=== PATIENT | male | born 1960 | race Caucasian/White ===

== ENCOUNTER 2021-09-09 16:08 | Outpatient (REF) | payer MEDICAID, SELFPAY ==
[2021-09-09 17:25] LABS: Anion Gap 10.2 mmol/L (3-11); BUN 12 mg/dL (7-18); CO2 24.8 mmol/L (21.0-32.0); CREATININE 0.8 mg/dL (0.70-1.30); Chloride 103 mmol/L (98-107); Glucose 114 mg/dL (74-106); Potassium 3.9 mmol/L (3.5-5.1); Sodium 138 mmol/L (136-145)
== END 2021-09-09 16:09 | disposition home or self-care (01) ==
LOC: LBN 16:08
PROVIDERS: PCP Legal Medicine; Visit Provider Legal Medicine
DX: I10 Essential (primary) hypertension (principal); C18.4 Malignant neoplasm of transverse colon; I25.10 Atherosclerotic heart disease of native coronary artery without angina pectoris; Z43.2 Encounter for attention to ileostomy; Z93.2 Ileostomy status
CPT/HCPCS: 80048

== ENCOUNTER 2021-09-19 11:42 | Outpatient (REF) | payer MEDICAID, SELFPAY ==
[2021-09-19 13:52] LABS: Anion Gap 7.4 mmol/L (3-11); BUN 14 mg/dL (7-18); CO2 28.6 mmol/L (21.0-32.0); CREATININE 0.7 mg/dL (0.70-1.30); Calcium 9.6 mg/dL (8.5-10.1); Chloride 104 mmol/L (98-107); Glucose 91 mg/dL (74-106); Potassium 4.7 mmol/L (3.5-5.1); Sodium 140 mmol/L (136-145)
== END 2021-09-19 11:43 ==
LOC: LBN 11:42
PROVIDERS: PCP Legal Medicine; Visit Provider Colon & Rectal Surgery
DX: C18.4 Malignant neoplasm of transverse colon (principal); I25.10 Atherosclerotic heart disease of native coronary artery without angina pectoris
CPT/HCPCS: 80048

== ENCOUNTER 2021-09-23 15:43 | Outpatient (REF) | payer MEDICAID, SELFPAY ==
[2021-09-23 21:05] LABS: Anion Gap 8.5 mmol/L (3-11); BUN 19 mg/dL (7-18); CO2 24.5 mmol/L (21.0-32.0); CREATININE 0.9 mg/dL (0.70-1.30); Calcium 8.5 mg/dL (8.5-10.1); Chloride 107 mmol/L (98-107); Glucose 127 mg/dL (74-106); Potassium 4.2 mmol/L (3.5-5.1); Sodium 140 mmol/L (136-145)
== END 2021-09-23 15:44 | disposition home or self-care (01) ==
LOC: LBN 15:43
PROVIDERS: PCP Legal Medicine; Visit Provider Colon & Rectal Surgery
DX: C18.4 Malignant neoplasm of transverse colon (principal); Z48.3 Aftercare following surgery for neoplasm; Z43.2 Encounter for attention to ileostomy
CPT/HCPCS: 80048

== ENCOUNTER 2021-09-30 15:36 | Outpatient (REF) | payer MEDICAID, SELFPAY ==
[2021-09-30 17:11] LABS: Anion Gap 10.7 mmol/L (3-11); BUN 20 mg/dL (7-18); CO2 24.3 mmol/L (21.0-32.0); CREATININE 1.1 mg/dL (0.70-1.30); Chloride 103 mmol/L (98-107); Glucose 107 mg/dL (74-106); Sodium 138 mmol/L (136-145)
== END 2021-09-30 15:37 | disposition home or self-care (01) ==
LOC: LBN 15:36
PROVIDERS: PCP Legal Medicine; Visit Provider Colon & Rectal Surgery
DX: C18.4 Malignant neoplasm of transverse colon (principal); I25.10 Atherosclerotic heart disease of native coronary artery without angina pectoris; Z48.3 Aftercare following surgery for neoplasm; Z43.2 Encounter for attention to ileostomy
CPT/HCPCS: 80048

== ENCOUNTER 2021-10-08 19:03 | Outpatient (REF) | payer MEDICAID, SELFPAY ==
[2021-10-08 16:53] LABS: Anion Gap 9.4 mmol/L (3-11); BUN 17 mg/dL (7-18); CO2 25.6 mmol/L (21.0-32.0); CREATININE 0.9 mg/dL (0.70-1.30); Calcium 8.5 mg/dL (8.5-10.1); Chloride 103 mmol/L (98-107); Glucose 133 mg/dL (74-106); Potassium 4.5 mmol/L (3.5-5.1); Sodium 138 mmol/L (136-145)
== END 2021-10-08 19:04 | disposition home or self-care (01) ==
LOC: LBN 19:03
PROVIDERS: PCP Legal Medicine; Visit Provider Colon & Rectal Surgery
DX: Z43.2 Encounter for attention to ileostomy (principal); Z93.2 Ileostomy status
CPT/HCPCS: 80048

== ENCOUNTER 2021-10-13 12:46 | Outpatient (REF) | payer MEDICAID, SELFPAY ==
[2021-10-13 13:13] LABS: Anion Gap 11.3 mmol/L (3-11); BUN 20 mg/dL (7-18); CO2 23.7 mmol/L (21.0-32.0); Calcium 8.9 mg/dL (8.5-10.1); Chloride 104 mmol/L (98-107); Glucose 105 mg/dL (74-106); Potassium 4.6 mmol/L (3.5-5.1); Sodium 139 mmol/L (136-145)
== END 2021-10-13 12:47 | disposition home or self-care (01) ==
LOC: LBN 12:46
PROVIDERS: PCP Legal Medicine; Visit Provider Colon & Rectal Surgery
DX: C18.4 Malignant neoplasm of transverse colon (principal); I11.9 Hypertensive heart disease without heart failure; I26.99 Other pulmonary embolism without acute cor pulmonale
CPT/HCPCS: 80048

== ENCOUNTER 2021-10-20 11:38 | Outpatient (REF) | payer MEDICAID, SELFPAY ==
[2021-10-20 12:22] LABS: Abs Immature Grans 0.03 10^3/uL (0.0-0.06); Absolute Basophil Count 0.04 10^3/uL (0.0-0.2); Absolute Eosinophil Count 0.19 10^3/uL (0.0-0.7); Absolute Lymphocyte Count 1.42 10^3/uL (1.2-3.4); Absolute Monocyte Count 0.54 10^3/uL (0.1-0.8); Absolute Neutrophil Count 5.57 10^3/uL (1.2-6.7); Basophils % 0.5; Eosinophils % 2.4; HCT 38.6 % (40.0-50.0); HGB 12.7 g/dL (13.5-17.5); Immature Grans % 0.4; Lymphocytes % 18.2; MCH 28.5 pg (27.0-33.0); MCHC 32.9 % (32.0-36.0); MCV 86.7 fL (80-95); Monocytes % 6.9; Neutrophils % 71.6; Nucleated RBC 0 %; Platelet Count 193 10^3/uL (130-400); RBC 4.45 10^6/uL (4.36-5.78); RDW 14.3 % (11.8-14.1); RDW-SD 45.8 fL; WBC 7.79 10^3/uL (4.4-10.8)
[2021-10-20 12:45] LABS: ALT 119 U/L (16-63); AST 74 U/L (15-37); Albumin 3.8 g/dL (3.4-5.0); Alkaline Phosphatase 122 U/L (46-116); Anion Gap 12.5 mmol/L (3-11); BUN 28 mg/dL (7-18); Bilirubin, Total 0.6 mg/dL (0.2-1.0); CO2 20.5 mmol/L (21.0-32.0); CREATININE 1.1 mg/dL (0.70-1.30); Chloride 102 mmol/L (98-107); Glucose 112 mg/dL (74-106); Potassium 4.1 mmol/L (3.5-5.1); Sodium 135 mmol/L (136-145); Total Protein 7.2 g/dL (6.4-8.2)
[2021-10-21 09:52] LABS: CEA 7.2 ng/mL (See Note)
== END 2021-10-20 11:39 | disposition home or self-care (01) ==
LOC: LBN 11:38
PROVIDERS: PCP Legal Medicine; Visit Provider Colon & Rectal Surgery
DX: E11.9 Type 2 diabetes mellitus without complications (principal); C18.4 Malignant neoplasm of transverse colon; Z93.2 Ileostomy status
CPT/HCPCS: 80053; 82378; 85025

== ENCOUNTER 2021-10-25 01:19 | Outpatient (RCR) | payer MEDICAID, SELFPAY ==
[2021-10-11] MEDS: Normal Saline Flush 10 ML SYR IVP (08:12)
[2021-10-11 08:24] LABS: Abs Immature Grans 0.06 10^3/uL (0.0-0.06); Absolute Basophil Count 0.06 10^3/uL (0.0-0.2); Absolute Eosinophil Count 0.18 10^3/uL (0.0-0.7); Absolute Lymphocyte Count 0.98 10^3/uL (1.2-3.4); Absolute Monocyte Count 0.84 10^3/uL (0.1-0.8); Absolute Neutrophil Count 7.24 10^3/uL (1.2-6.7); Basophils % 0.6; Eosinophils % 1.9; HCT 38.5 % (40.0-50.0); HGB 12.6 g/dL (13.5-17.5); Immature Grans % 0.6; Lymphocytes % 10.5; MCH 28.5 pg (27.0-33.0); MCHC 32.7 % (32.0-36.0); MCV 87.1 fL (80-95); MPV 8.9 fL (8.0-11.0); Neutrophils % 77.4; Nucleated RBC 0 %; Platelet Count 276 10^3/uL (130-400); RBC 4.42 10^6/uL (4.36-5.78); RDW 15.7 % (11.8-14.1); RDW-SD 50.1 fL; WBC 9.36 10^3/uL (4.4-10.8)
[2021-10-11 08:37] LABS: ALT 47 U/L (16-63); AST 31 U/L (15-37); Albumin 3.6 g/dL (3.4-5.0); Alkaline Phosphatase 131 U/L (46-116); Anion Gap 10.6 mmol/L (3-11); BUN 13 mg/dL (7-18); Bilirubin, Total 0.5 mg/dL (0.2-1.0); CO2 23.4 mmol/L (21.0-32.0); CREATININE 1.1 mg/dL (0.70-1.30); Chloride 103 mmol/L (98-107); Glucose 135 mg/dL (74-106); Potassium 4.2 mmol/L (3.5-5.1); Sodium 137 mmol/L (136-145); Total Protein 7.6 g/dL (6.4-8.2)
[2021-10-11 17:25] LABS: CEA 5.6 ng/mL (See Note)
[2021-10-25] MEDS: Normal Saline Flush 10 ML SYR IVP (08:18)
[2021-10-25 08:25] LABS: HCT 38.1 % (40.0-50.0); HGB 12.5 g/dL (13.5-17.5); MCH 28.6 pg (27.0-33.0); MCHC 32.8 % (32.0-36.0); MCV 87.2 fL (80-95); MPV 8.5 fL (8.0-11.0); Nucleated RBC 0 %; Platelet Count 190 10^3/uL (130-400); RBC 4.37 10^6/uL (4.36-5.78); RDW 15.5 % (11.8-14.1); RDW-SD 46.2 fL; WBC 3.32 10^3/uL (4.4-10.8)
[2021-10-25 08:39] LABS: ALT 69 U/L (16-63); AST 28 U/L (15-37); Albumin 3.8 g/dL (3.4-5.0); Alkaline Phosphatase 122 U/L (46-116); Anion Gap 12.6 mmol/L (3-11); BUN 18 mg/dL (7-18); Bilirubin, Total 0.5 mg/dL (0.2-1.0); CO2 21.4 mmol/L (21.0-32.0); CREATININE 1.1 mg/dL (0.70-1.30); Calcium 9.4 mg/dL (8.5-10.1); Chloride 101 mmol/L (98-107); Glucose 125 mg/dL (74-106); Potassium 4.4 mmol/L (3.5-5.1); Sodium 135 mmol/L (136-145); Total Protein 7.8 g/dL (6.4-8.2)
[2021-10-25 08:51] LABS: Absolute Eosinophil Count 0.03 10^3/uL (0.0-0.7); Absolute Lymphocyte Count 1.39 10^3/uL (1.2-3.4); Absolute Monocyte Count 0.43 10^3/uL (0.1-0.8); Absolute Neutrophil Count 1.46 10^3/uL (1.2-6.7); Atypical Lymphocytes % 17; Bands % 1; Diff Comment Manual Differential; RBC Morphology Normal
== END 2021-11-04 23:59 | disposition home or self-care (01) ==
LOC: INF 01:19
PROVIDERS: PCP Legal Medicine; Visit Provider Internal Medicine Hematology & Oncology
DX: C18.4 Malignant neoplasm of transverse colon (principal); Z45.2 Encounter for adjustment and management of vascular access device
CPT/HCPCS: 36591; 80053; 82378; 85025

== ENCOUNTER 2021-11-03 12:37 | Outpatient (REF) | payer MEDICAID, SELFPAY ==
[2021-11-03 12:57] LABS: Anion Gap 9.5 mmol/L (3-11); BUN 29 mg/dL (7-18); CO2 23.5 mmol/L (21.0-32.0); Calcium 8.3 mg/dL (8.5-10.1); Chloride 103 mmol/L (98-107); Glucose 118 mg/dL (74-106); Potassium 3.9 mmol/L (3.5-5.1); Sodium 136 mmol/L (136-145)
== END 2021-11-03 12:38 | disposition home or self-care (01) ==
LOC: NCHCN 12:37
PROVIDERS: PCP Legal Medicine; Visit Provider Colon & Rectal Surgery
DX: C18.4 Malignant neoplasm of transverse colon (principal); I11.9 Hypertensive heart disease without heart failure; Z93.2 Ileostomy status
CPT/HCPCS: 80048

== ENCOUNTER 2021-11-10 11:25 | Outpatient (REF) | payer MEDICAID, SELFPAY ==
[2021-11-10 12:41] LABS: Anion Gap 12.6 mmol/L (3-11); BUN 21 mg/dL (7-18); CO2 22.4 mmol/L (21.0-32.0); CREATININE 1.1 mg/dL (0.70-1.30); Calcium 8.7 mg/dL (8.5-10.1); Chloride 103 mmol/L (98-107); Glucose 109 mg/dL (74-106); Potassium 3.7 mmol/L (3.5-5.1); Sodium 138 mmol/L (136-145)
== END 2021-11-10 11:26 | disposition home or self-care (01) ==
LOC: LBN 11:25
PROVIDERS: PCP Legal Medicine; Visit Provider Colon & Rectal Surgery
DX: C18.4 Malignant neoplasm of transverse colon (principal)
CPT/HCPCS: 80048

== ENCOUNTER 2021-11-29 03:20 | Outpatient (RCR) | payer MEDICAID, SELFPAY ==
[2021-11-08] MEDS: Normal Saline Flush 10 ML SYR IVP (08:24)
[2021-11-08 08:28] LABS: Abs Immature Grans 0.01 10^3/uL (0.0-0.06); Absolute Basophil Count 0.01 10^3/uL (0.0-0.2); Absolute Eosinophil Count 0.04 10^3/uL (0.0-0.7); Absolute Lymphocyte Count 1.36 10^3/uL (1.2-3.4); Absolute Monocyte Count 0.76 10^3/uL (0.1-0.8); Basophils % 0.3; Eosinophils % 1.3; HCT 38.8 % (40.0-50.0); Immature Grans % 0.3; Lymphocytes % 42.8; MCH 29.7 pg (27.0-33.0); MCHC 33.5 % (32.0-36.0); MCV 88.6 fL (80-95); Monocytes % 23.9; Neutrophils % 31.4; Nucleated RBC 0 %; Platelet Count 112 10^3/uL (130-400); RBC 4.38 10^6/uL (4.36-5.78); RDW 16.3 % (11.8-14.1); RDW-SD 51.3 fL; WBC 3.18 10^3/uL (4.4-10.8)
[2021-11-08 08:41] LABS: ALT 58 U/L (16-63); AST 31 U/L (15-37); Albumin 3.4 g/dL (3.4-5.0); Alkaline Phosphatase 100 U/L (46-116); Anion Gap 11.9 mmol/L (3-11); BUN 18 mg/dL (7-18); Bilirubin, Total 0.7 mg/dL (0.2-1.0); CO2 22.1 mmol/L (21.0-32.0); CREATININE 1.4 mg/dL (0.70-1.30); Chloride 101 mmol/L (98-107); Estimated GFR 51.18 (mL/min/1.73m2); Glucose 103 mg/dL (74-106); Potassium 4.3 mmol/L (3.5-5.1); Sodium 135 mmol/L (136-145); Total Protein 6.9 g/dL (6.4-8.2)
[2021-11-11 10:46] LABS: CEA 9.2 ng/mL (See Note)
[2021-11-15] MEDS: Normal Saline Flush 10 ML SYR IVP (08:30)
[2021-11-15 08:40] LABS: HCT 40.6 % (40.0-50.0); HGB 13.5 g/dL (13.5-17.5); MCH 29.7 pg (27.0-33.0); MCHC 33.3 % (32.0-36.0); MCV 89.4 fL (80-95); MPV 8.5 fL (8.0-11.0); Nucleated RBC 0 %; RBC 4.54 10^6/uL (4.36-5.78); RDW 17.1 % (11.8-14.1)
[2021-11-15 09:03] LABS: ALT 45 U/L (16-63); AST 36 U/L (15-37); Albumin 3.8 g/dL (3.4-5.0); Alkaline Phosphatase 113 U/L (46-116); Anion Gap 11.3 mmol/L (3-11); BUN 19 mg/dL (7-18); Bilirubin, Total 0.3 mg/dL (0.2-1.0); CO2 20.7 mmol/L (21.0-32.0); CREATININE 1.5 mg/dL (0.70-1.30); Calcium 9.3 mg/dL (8.5-10.1); Chloride 106 mmol/L (98-107); Estimated GFR 47.27 (mL/min/1.73m2); Glucose 97 mg/dL (74-106); Potassium 4.4 mmol/L (3.5-5.1); Sodium 138 mmol/L (136-145); Total Protein 7.5 g/dL (6.4-8.2)
[2021-11-15 09:06] LABS: Absolute Eosinophil Count 0.13 10^3/uL (0.0-0.7); Absolute Lymphocyte Count 2.01 10^3/uL (1.2-3.4); Absolute Monocyte Count 1.07 10^3/uL (0.1-0.8); Absolute Neutrophil Count 3.35 10^3/uL (1.2-6.7); Bands % 2
[2021-11-15 09:07] LABS: Absolute Basophil Count 0.07 10^3/uL (0.0-0.2); Diff Comment Manual Differential; Metamyelocytes % 1
[2021-11-15 09:10] LABS: Polychromasia Present
[2021-11-15 09:11] LABS: Platelet Count 237 10^3/uL (130-400)
[2021-11-15 17:25] LABS: CEA 6.3 ng/mL (See Note)
[2021-11-29] MEDS: Normal Saline Flush 10 ML SYR IVP (07:54)
[2021-11-29 08:03] LABS: Abs Immature Grans 0.01 10^3/uL (0.0-0.06); Absolute Basophil Count 0.03 10^3/uL (0.0-0.2); Absolute Lymphocyte Count 1.54 10^3/uL (1.2-3.4); Absolute Monocyte Count 0.68 10^3/uL (0.1-0.8); Absolute Neutrophil Count 3.71 10^3/uL (1.2-6.7); Basophils % 0.5; Eosinophils % 1.6; HCT 39.2 % (40.0-50.0); HGB 13.2 g/dL (13.5-17.5); Immature Grans % 0.2; Lymphocytes % 25.4; MCH 30.3 pg (27.0-33.0); MCHC 33.7 % (32.0-36.0); MCV 89.9 fL (80-95); MPV 9.3 fL (8.0-11.0); Monocytes % 11.2; Neutrophils % 61.1; Nucleated RBC 0 %; Platelet Count 149 10^3/uL (130-400); RBC 4.36 10^6/uL (4.36-5.78); RDW 17.4 % (11.8-14.1); RDW-SD 52.8 fL; WBC 6.07 10^3/uL (4.4-10.8)
[2021-11-29 08:14] LABS: ALT 61 U/L (16-63); AST 51 U/L (15-37); Alkaline Phosphatase 120 U/L (46-116); Anion Gap 10.8 mmol/L (3-11); BUN 20 mg/dL (7-18); Bilirubin, Total 0.8 mg/dL (0.2-1.0); CO2 21.2 mmol/L (21.0-32.0); CREATININE 1.5 mg/dL (0.70-1.30); Calcium 9.7 mg/dL (8.5-10.1); Chloride 104 mmol/L (98-107); Estimated GFR 47.27 (mL/min/1.73m2); Glucose 106 mg/dL (74-106); Potassium 4.5 mmol/L (3.5-5.1); Sodium 136 mmol/L (136-145); Total Protein 7.4 g/dL (6.4-8.2)
[2021-11-29 21:11] LABS: CEA 3.7 ng/mL (See Note)
== END 2021-12-02 23:59 | disposition home or self-care (01) ==
LOC: INF 03:20
PROVIDERS: PCP Legal Medicine; Visit Provider Internal Medicine Hematology & Oncology
DX: C18.4 Malignant neoplasm of transverse colon (principal); Z45.2 Encounter for adjustment and management of vascular access device
CPT/HCPCS: 36591; 80053; 82378; 85025

== ENCOUNTER 2021-12-20 00:58 | Outpatient (RCR) | payer MEDICAID, SELFPAY ==
[2021-12-20 08:26] LABS: Abs Immature Grans 0.05 10^3/uL (0.0-0.06); Absolute Basophil Count 0.06 10^3/uL (0.0-0.2); Absolute Eosinophil Count 0.16 10^3/uL (0.0-0.7); Absolute Lymphocyte Count 1.38 10^3/uL (1.2-3.4); Basophils % 1.4; Eosinophils % 3.8; HCT 35.2 % (40.0-50.0); HGB 11.5 g/dL (13.5-17.5); Immature Grans % 1.2; Lymphocytes % 32.5; MCH 31.3 pg (27.0-33.0); MCHC 32.7 % (32.0-36.0); MCV 95.7 fL (80-95); MPV 8.9 fL (8.0-11.0); Monocytes % 16.5; Neutrophils % 44.6; Nucleated RBC 0 %; Platelet Count 169 10^3/uL (130-400); RBC 3.68 10^6/uL (4.36-5.78); RDW 17.9 % (11.8-14.1); RDW-SD 63.1 fL; WBC 4.25 10^3/uL (4.4-10.8)
[2021-12-20 08:40] LABS: ALT 24 U/L (16-63); AST 21 U/L (15-37); Albumin 3.6 g/dL (3.4-5.0); Alkaline Phosphatase 82 U/L (46-116); Anion Gap 11.6 mmol/L (3-11); BUN 11 mg/dL (7-18); Bilirubin, Total 0.4 mg/dL (0.2-1.0); CO2 22.4 mmol/L (21.0-32.0); CREATININE 1.2 mg/dL (0.70-1.30); Calcium 9.1 mg/dL (8.5-10.1); Chloride 106 mmol/L (98-107); Glucose 94 mg/dL (74-106); Potassium 4.3 mmol/L (3.5-5.1); Sodium 140 mmol/L (136-145); Total Protein 6.9 g/dL (6.4-8.2)
[2021-12-20] MEDS: Normal Saline Flush 10 ML SYR IVP (08:45)
[2021-12-20 18:58] LABS: CEA 2.7 ng/mL (See Note)
== END 2022-01-02 23:59 | disposition home or self-care (01) ==
LOC: INF 00:58
PROVIDERS: PCP Legal Medicine; Visit Provider Internal Medicine Hematology & Oncology
DX: C18.4 Malignant neoplasm of transverse colon (principal); Z45.2 Encounter for adjustment and management of vascular access device
CPT/HCPCS: 36591; 80053; 82378; 85025

== ENCOUNTER 2022-01-24 00:50 | Outpatient (RCR) | payer MEDICAID, SELFPAY ==
[2022-01-03] MEDS: Normal Saline Flush 10 ML SYR IVP (08:22)
[2022-01-03 08:38] LABS: Abs Immature Grans 0.01 10^3/uL (0.0-0.06); Absolute Basophil Count 0.02 10^3/uL (0.0-0.2); Absolute Eosinophil Count 0.11 10^3/uL (0.0-0.7); Absolute Lymphocyte Count 1.06 10^3/uL (1.2-3.4); Absolute Monocyte Count 0.43 10^3/uL (0.1-0.8); Absolute Neutrophil Count 2.62 10^3/uL (1.2-6.7); Basophils % 0.5; Eosinophils % 2.6; HCT 32.7 % (40.0-50.0); HGB 10.5 g/dL (13.5-17.5); Immature Grans % 0.2; Lymphocytes % 24.9; MCH 31.2 pg (27.0-33.0); MCHC 32.1 % (32.0-36.0); MPV 9.7 fL (8.0-11.0); Monocytes % 10.1; Neutrophils % 61.7; Nucleated RBC 0 %; Platelet Count 109 10^3/uL (130-400); RBC 3.37 10^6/uL (4.36-5.78); RDW 17.2 % (11.8-14.1); RDW-SD 60.1 fL; WBC 4.25 10^3/uL (4.4-10.8)
[2022-01-03 08:57] LABS: ALT 26 U/L (16-63); AST 24 U/L (15-37); Albumin 3.5 g/dL (3.4-5.0); Alkaline Phosphatase 88 U/L (46-116); Anion Gap 5.5 mmol/L (3-11); BUN 12 mg/dL (7-18); Bilirubin, Total 0.5 mg/dL (0.2-1.0); CO2 24.5 mmol/L (21.0-32.0); Calcium 8.6 mg/dL (8.5-10.1); Chloride 109 mmol/L (98-107); Glucose 105 mg/dL (74-106); Potassium 4.1 mmol/L (3.5-5.1); Sodium 139 mmol/L (136-145); Total Protein 6.5 g/dL (6.4-8.2)
[2022-01-10 09:33] LABS: Abs Immature Grans 0.04 10^3/uL (0.0-0.06); Absolute Basophil Count 0.02 10^3/uL (0.0-0.2); Absolute Eosinophil Count 0.13 10^3/uL (0.0-0.7); Absolute Lymphocyte Count 1.25 10^3/uL (1.2-3.4); Absolute Monocyte Count 0.91 10^3/uL (0.1-0.8); Absolute Neutrophil Count 1.36 10^3/uL (1.2-6.7); Basophils % 0.5; Eosinophils % 3.5; HCT 34.9 % (40.0-50.0); HGB 11.2 g/dL (13.5-17.5); Immature Grans % 1.1; Lymphocytes % 33.7; MCH 31.4 pg (27.0-33.0); MCHC 32.1 % (32.0-36.0); MCV 97.8 fL (80-95); MPV 9.5 fL (8.0-11.0); Monocytes % 24.5; Neutrophils % 36.7; Nucleated RBC 0 %; Platelet Count 209 10^3/uL (130-400); RBC 3.57 10^6/uL (4.36-5.78); RDW 16.1 % (11.8-14.1); RDW-SD 58.4 fL; WBC 3.71 10^3/uL (4.4-10.8)
[2022-01-10] MEDS: Normal Saline Flush 10 ML SYR IVP (09:36)
[2022-01-10 09:54] LABS: ALT 26 U/L (16-63); AST 32 U/L (15-37); Albumin 3.7 g/dL (3.4-5.0); Alkaline Phosphatase 85 U/L (46-116); Anion Gap 9.2 mmol/L (3-11); BUN 11 mg/dL (7-18); Bilirubin, Total 0.6 mg/dL (0.2-1.0); CO2 23.8 mmol/L (21.0-32.0); CREATININE 1.1 mg/dL (0.70-1.30); Calcium 8.9 mg/dL (8.5-10.1); Chloride 106 mmol/L (98-107); Glucose 101 mg/dL (74-106); Sodium 139 mmol/L (136-145); Total Protein 6.9 g/dL (6.4-8.2)
[2022-01-24] MEDS: Normal Saline Flush 10 ML SYR IVP (08:00)
[2022-01-24 08:10] LABS: Abs Immature Grans 0.01 10^3/uL (0.0-0.06); Absolute Basophil Count 0.02 10^3/uL (0.0-0.2); Absolute Lymphocyte Count 1.12 10^3/uL (1.2-3.4); Absolute Monocyte Count 0.57 10^3/uL (0.1-0.8); Absolute Neutrophil Count 3.14 10^3/uL (1.2-6.7); Basophils % 0.4; HCT 32.7 % (40.0-50.0); HGB 10.6 g/dL (13.5-17.5); Immature Grans % 0.2; Lymphocytes % 22.6; MCH 31.6 pg (27.0-33.0); MCHC 32.4 % (32.0-36.0); MCV 97.6 fL (80-95); MPV 10.2 fL (8.0-11.0); Monocytes % 11.5; Neutrophils % 63.3; Platelet Count 102 10^3/uL (130-400); RBC 3.35 10^6/uL (4.36-5.78); RDW-SD 53.9 fL; WBC 4.96 10^3/uL (4.4-10.8)
[2022-01-24 08:22] LABS: ALT 26 U/L (16-63); AST 26 U/L (15-37); Albumin 3.7 g/dL (3.4-5.0); Alkaline Phosphatase 85 U/L (46-116); Anion Gap 6.9 mmol/L (3-11); BUN 12 mg/dL (7-18); Bilirubin, Total 0.6 mg/dL (0.2-1.0); CO2 25.1 mmol/L (21.0-32.0); Chloride 107 mmol/L (98-107); Glucose 98 mg/dL (74-106); Sodium 139 mmol/L (136-145); Total Protein 6.7 g/dL (6.4-8.2)
== END 2022-02-01 23:59 | disposition home or self-care (01) ==
LOC: INF 00:50
PROVIDERS: PCP Legal Medicine; Visit Provider Internal Medicine Hematology & Oncology
DX: Z45.2 Encounter for adjustment and management of vascular access device (principal); C18.4 Malignant neoplasm of transverse colon
CPT/HCPCS: 36591; 80053; 82378; 85025

== ENCOUNTER 2022-02-07 01:54 | Outpatient (RCR) | payer MEDICAID, SELFPAY ==
[2022-02-07] MEDS: Normal Saline Flush 10 ML SYR IVP (09:02)
[2022-02-07 09:11] LABS: Abs Immature Grans 0.01 10^3/uL (0.0-0.06); Absolute Basophil Count 0.02 10^3/uL (0.0-0.2); Absolute Eosinophil Count 0.13 10^3/uL (0.0-0.7); Basophils % 0.4; Eosinophils % 2.7; HCT 31.1 % (40.0-50.0); HGB 10.1 g/dL (13.5-17.5); Immature Grans % 0.2; Lymphocytes % 24.7; MCH 31.2 pg (27.0-33.0); MCHC 32.5 % (32.0-36.0); MCV 96 fL (80-95); MPV 10.7 fL (8.0-11.0); Monocytes % 16.5; Neutrophils % 55.5; Platelet Count 103 10^3/uL (130-400); RBC 3.24 10^6/uL (4.36-5.78); RDW 14.5 % (11.8-14.1); RDW-SD 50.1 fL; WBC 4.86 10^3/uL (4.4-10.8)
[2022-02-07 09:29] LABS: ALT 21 U/L (16-63); AST 24 U/L (15-37); Albumin 3.5 g/dL (3.4-5.0); Alkaline Phosphatase 73 U/L (46-116); Anion Gap 8.7 mmol/L (3-11); BUN 10 mg/dL (7-18); Bilirubin, Total 0.6 mg/dL (0.2-1.0); CO2 26.3 mmol/L (21.0-32.0); Calcium 8.6 mg/dL (8.5-10.1); Chloride 108 mmol/L (98-107); Glucose 85 mg/dL (74-106); Sodium 143 mmol/L (136-145); Total Protein 6.4 g/dL (6.4-8.2)
== END 2022-03-04 23:59 | disposition home or self-care (01) ==
LOC: INF 01:54
PROVIDERS: PCP Legal Medicine; Visit Provider Internal Medicine Hematology & Oncology
DX: C18.4 Malignant neoplasm of transverse colon (principal); Z45.2 Encounter for adjustment and management of vascular access device
CPT/HCPCS: 36591; 80053; 82378; 85025

== ENCOUNTER 2022-03-14 01:05 | Outpatient (RCR) | payer MEDICAID, SELFPAY ==
[2022-03-14] MEDS: Normal Saline Flush 10 ML SYR IVP (07:18)
[2022-03-14 07:26] LABS: Abs Immature Grans 0.06 10^3/uL (0.0-0.06); Absolute Basophil Count 0.03 10^3/uL (0.0-0.2); Absolute Eosinophil Count 0.18 10^3/uL (0.0-0.7); Absolute Lymphocyte Count 1.16 10^3/uL (1.2-3.4); Absolute Monocyte Count 0.58 10^3/uL (0.1-0.8); Absolute Neutrophil Count 3.16 10^3/uL (1.2-6.7); Basophils % 0.6; Eosinophils % 3.5; HCT 33.5 % (40.0-50.0); HGB 10.8 g/dL (13.5-17.5); Immature Grans % 1.2; Lymphocytes % 22.4; MCH 29.9 pg (27.0-33.0); MCHC 32.2 % (32.0-36.0); MCV 93 fL (80-95); MPV 10.9 fL (8.0-11.0); Monocytes % 11.2; Neutrophils % 61.1; Platelet Count 118 10^3/uL (130-400); RBC 3.61 10^6/uL (4.36-5.78); RDW 14.1 % (11.8-14.1); WBC 5.17 10^3/uL (4.4-10.8)
[2022-03-14 08:02] LABS: ALT 24 U/L (16-63); AST 28 U/L (15-37); Albumin 3.6 g/dL (3.4-5.0); Alkaline Phosphatase 94 U/L (46-116); Anion Gap 8.7 mmol/L (3-11); BUN 14 mg/dL (7-18); Bilirubin, Total 0.4 mg/dL (0.2-1.0); CO2 25.3 mmol/L (21.0-32.0); Calcium 8.9 mg/dL (8.5-10.1); Chloride 108 mmol/L (98-107); Glucose 95 mg/dL (74-106); Potassium 4.3 mmol/L (3.5-5.1); Sodium 142 mmol/L (136-145); Total Protein 6.8 g/dL (6.4-8.2)
[2022-03-14 18:02] LABS: CEA 1.2 ng/mL (See Note)
== END 2022-04-03 23:59 | disposition home or self-care (01) ==
LOC: INF 01:05
PROVIDERS: PCP Legal Medicine; Visit Provider Internal Medicine Hematology & Oncology
DX: C18.4 Malignant neoplasm of transverse colon (principal); Z45.2 Encounter for adjustment and management of vascular access device
CPT/HCPCS: 36591; 80053; 82378; 85025

== ENCOUNTER → 2022-08-01 00:56 | Outpatient (CLI) | payer MEDICAID, SELFPAY ==
[2022-08-01] MEDS: Omnipaque 350 MG/ML 100 ML BTL IJ (14:31)
[2022-08-01] MEDS: Barium Sulfate 2% W/V-Creamy Vanilla Smoothie 450 ML BTL PO (14:32)
--- NOTE | 2022-08-01 14:45 | DI.CT_ITS ---
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 Pulmonary parenchyma: No consolidation or dominant measurable mass. No architectural distortion. Visualized thyroid gland: There is a stable 2.4 cm nodule in the inferior pole of the left lobe of th e thyroid gland. Mediastinum and Padmini: No dominant adenopathy or fluid collection. The esophagus is unremarkable. Pleura: No effusion or pneumothorax. Heart: The heart is not dilated. Marked coronary artery calcification is present. No pericardial eff usion. Pulmonary arteries: No pulmonary emboli are identified. Aorta: Thoracic aorta non-dilated. Atherosclerosis is present. Lymph nodes: Within normal limits. Tubes, Catheters, and Lines: There is a Port-A-Cath seen. The tip is at the junction of the superior vena cava and right atrium. Soft tissues: Unremarkable. Bones:Within normal limits for the patient's age. No aggressive osseous lesions are present. ABDOMEN: Liver: Normal density. No measurable mass. The liver measures 18 cm long. Portal, Superior Mesenteric, and Splenic Veins: Unremarkable. Gallbladder and Biliary Tract: Cholelithiasis. No biliary ductal dilatation. Pancreas: Normal density, no abnormal calcifications or inflammatory process. Spleen: The spleen is enlarged measuring 16 cm long. Adrenals: No masses seen. Kidneys: Normal size, contour and axis. No radiodense stones or obstructive uropathy. There are bilat eral simple renal cysts. No follow-up is recommended. Abdominal Aorta: Abdominal portion non-dilated. Atherosclerosis is present. Bowel: There has been an interval hemicolectomy with a coloenteric anastomosis. The anastomosis is u nremarkable. There is diverticulosis seen in the colon but no evidence of acute diverticulitis. No evidence of bowel obstruction. Peritoneal Cavity: No ascites, collection or mesenteric inflammatory response. No free air. Lymph Nodes: Within normal limits. Bones: Within normal limits for the patient's age. No aggressive osseous lesions are identified. Soft Tissues: There are small bilateral fat containing inguinal hernias. PELVIS: Bladder: Symmetric distention, no gross wall thickening. Reproductive Organs: The prostate gland is mildly enlarged. Lymph Nodes: Within normal limits. Bones: Within normal limits. IMPRESSION: 1. No evidence of thoracic metastatic disease. 2. Status post right hemicolectomy with coloenteric anastomosis. No evidence of recurrent or residua l mass. 3. No evidence of abdominal or pelvic metastatic disease. 4. Hepatosplenomegaly. RADIATION DOSE DELIVERED: 2,423.69mGy.cm Total DLP DATA REPOSITORY: All CT scans at this facility are submitted to the National Radiology Data Registry (NRDR) Dose Index Registry (DIR) with the [employer] (ACR). RADIATION OPTIMIZATION: All CT scans at this facility use at least one of these dose optimization te chniques: automated exposure control; mA and/or kV adjustment per patient size (includes targeted exa ms where dose is matched to clinical indication); or iterative reconstruction.
== END ==
PROVIDERS: PCP Legal Medicine; Visit Provider Internal Medicine Hematology & Oncology
DX: R16.2 Hepatomegaly with splenomegaly, not elsewhere classified (principal); C18.2 Malignant neoplasm of ascending colon
CPT/HCPCS: 74177; 71260; J3490

== ENCOUNTER 2022-08-01 01:17 | Outpatient (RCR) | payer MEDICAID, SELFPAY ==
[2022-08-01] MEDS: Normal Saline Flush 10 ML SYR IVP (12:20)
[2022-08-01] MEDS: Heparin 500 UNITS/5 ML SYRINGE IV (12:21)
[2022-08-01 12:23] LABS: Abs Immature Grans 0.02 10^3/uL (0.0-0.06); Absolute Basophil Count 0.04 10^3/uL (0.0-0.2); Absolute Lymphocyte Count 1.33 10^3/uL (1.2-3.4); Absolute Monocyte Count 0.64 10^3/uL (0.1-0.8); Absolute Neutrophil Count 3.83 10^3/uL (1.2-6.7); Basophils % 0.7; Eosinophils % 3.3; HCT 34.3 % (40.0-50.0); HGB 10.7 g/dL (13.5-17.5); Immature Grans % 0.3; Lymphocytes % 21.9; MCH 25.1 pg (27.0-33.0); MCHC 31.2 % (32.0-36.0); MCV 81 fL (80-95); MPV 9.6 fL (8.0-11.0); Monocytes % 10.6; Neutrophils % 63.2; Platelet Count 159 10^3/uL (130-400); RBC 4.26 10^6/uL (4.36-5.78); RDW 16.5 % (11.8-14.1); RDW-SD 48.3 fL; WBC 6.06 10^3/uL (4.4-10.8)
[2022-08-01 12:45] LABS: ALT 33 U/L (16-63); AST 31 U/L (15-37); Alkaline Phosphatase 109 U/L (46-116); Anion Gap 7.6 mmol/L (3-11); BUN 28 mg/dL (7-18); Bilirubin, Total 0.5 mg/dL (0.2-1.0); CO2 26.4 mmol/L (21.0-32.0); CREATININE 1.1 mg/dL (0.70-1.30); Calcium 8.9 mg/dL (8.5-10.1); Chloride 107 mmol/L (98-107); Estimated GFR 74.96 (mL/min/1.73m2); Glucose 90 mg/dL (74-106); Potassium 4.1 mmol/L (3.5-5.1); Sodium 141 mmol/L (136-145); Total Protein 7.6 g/dL (6.4-8.2)
[2022-08-01 22:26] LABS: CEA 1.7 ng/mL (See Note)
== END 2022-08-04 23:59 | disposition home or self-care (01) ==
LOC: INF 01:17
PROVIDERS: PCP Legal Medicine; Visit Provider Internal Medicine Hematology & Oncology
DX: C18.2 Malignant neoplasm of ascending colon (principal); Z45.2 Encounter for adjustment and management of vascular access device
CPT/HCPCS: 36591; 80053; 82378; 85025

== ENCOUNTER 2022-08-08 08:37 | Outpatient (RCR) | payer MEDICAID, SELFPAY ==
[2022-08-08] MEDS: Normal Saline Flush 10 ML SYR IVP (09:04)
[2022-08-08] MEDS: Heparin 500 UNITS/5 ML SYRINGE (09:05)
[2022-08-08 09:11] LABS: Reticulocyte 1.5 % (0.5-2.4)
[2022-08-08 09:33] LABS: Iron 38 ug/dL (65-175); Total Iron Binding Capacity 367 ug/dL (250-450); Transferrin Sat 10 % (20-55)
[2022-08-08 09:51] LABS: Ferritin 22 ng/mL (26-388); Folate 13.6 ng/mL (8.6-20.0); Vitamin B12 233 pg/mL (193-986)
== END 2022-09-03 23:59 | disposition home or self-care (01) ==
LOC: INF 08:37
PROVIDERS: PCP Legal Medicine; Visit Provider Internal Medicine Hematology & Oncology
DX: C18.2 Malignant neoplasm of ascending colon (principal); Z45.2 Encounter for adjustment and management of vascular access device
CPT/HCPCS: 36591; 82607; 82728; 82746; 83540; 83550; 85045

== ENCOUNTER 2022-09-04 09:44 | Outpatient (RCR) | payer MEDICAID, SELFPAY ==
[2022-09-04] MEDS: Normal Saline Flush 10 ML SYR IVP (10:03)
[2022-09-04] MEDS: Heparin 500 UNITS/5 ML SYRINGE IVP (10:04)
[2022-09-04 10:09] LABS: Abs Immature Grans 0.02 10^3/uL (0.0-0.06); Absolute Basophil Count 0.04 10^3/uL (0.0-0.2); Absolute Eosinophil Count 0.27 10^3/uL (0.0-0.7); Absolute Lymphocyte Count 1.46 10^3/uL (1.2-3.4); Absolute Monocyte Count 0.79 10^3/uL (0.1-0.8); Absolute Neutrophil Count 3.67 10^3/uL (1.2-6.7); Basophils % 0.6; Eosinophils % 4.3; HGB 11.5 g/dL (13.5-17.5); Immature Grans % 0.3; Lymphocytes % 23.4; MCH 25.6 pg (27.0-33.0); MCHC 31.1 % (32.0-36.0); MCV 82 fL (80-95); MPV 9.5 fL (8.0-11.0); Monocytes % 12.6; Neutrophils % 58.8; Platelet Count 162 10^3/uL (130-400); RBC 4.49 10^6/uL (4.36-5.78); RDW 18.1 % (11.8-14.1); RDW-SD 53.8 fL; WBC 6.25 10^3/uL (4.4-10.8)
[2022-09-04 10:46] LABS: ALT 33 U/L (16-63); AST 26 U/L (15-37); Alkaline Phosphatase 104 U/L (46-116); Anion Gap 6.8 mmol/L (3-11); BUN 27 mg/dL (7-18); Bilirubin, Total 0.4 mg/dL (0.2-1.0); CO2 27.2 mmol/L (21.0-32.0); Calcium 8.7 mg/dL (8.5-10.1); Chloride 104 mmol/L (98-107); Estimated GFR 84.05 (mL/min/1.73m2); Ferritin 24 ng/mL (26-388); Glucose 101 mg/dL (74-106); Potassium 4.2 mmol/L (3.5-5.1); Sodium 138 mmol/L (136-145); Total Protein 7.4 g/dL (6.4-8.2)
[2022-09-04 10:49] LABS: Iron 46 ug/dL (65-175); Total Iron Binding Capacity 358 ug/dL (250-450); Transferrin Sat 13 % (20-55)
[2022-09-04 19:44] LABS: CEA 1.7 ng/mL (See Note)
== END 2022-10-04 23:59 | disposition home or self-care (01) ==
LOC: INF 09:44
PROVIDERS: PCP Legal Medicine; Visit Provider Internal Medicine Hematology & Oncology
DX: C18.2 Malignant neoplasm of ascending colon (principal); Z45.2 Encounter for adjustment and management of vascular access device
CPT/HCPCS: 36591; 80053; 82378; 82728; 83540; 83550; 85025

== ENCOUNTER 2023-02-19 01:58 | Outpatient (CLI) | payer MEDICAID, SELFPAY ==
[2023-02-19 08:05] LABS: Abs Immature Grans 0.06 10^3/uL (0.0-0.06); Absolute Basophil Count 0.06 10^3/uL (0.0-0.2); Absolute Eosinophil Count 0.25 10^3/uL (0.0-0.7); Absolute Lymphocyte Count 1.59 10^3/uL (1.2-3.4); Absolute Neutrophil Count 3.73 10^3/uL (1.2-6.7); HCT 41.7 % (40.0-50.0); HGB 14.9 g/dL (13.5-17.5); Lymphocytes % 25.3; MCH 32.6 pg (27.0-33.0); MCHC 35.7 % (32.0-36.0); MCV 91 fL (80-95); MPV 9.1 fL (8.0-11.0); Monocytes % 9.5; Neutrophils % 59.2; Platelet Count 143 10^3/uL (130-400); RBC 4.57 10^6/uL (4.36-5.78); RDW 13.2 % (11.8-14.1); RDW-SD 43.1 fL; WBC 6.29 10^3/uL (4.4-10.8)
[2023-02-19] MEDS: Barium Sulfate 2% W/V-Berry Smoothie 450 ML BTL 950 ML PO (08:05)
[2023-02-19 08:28] LABS: ALT 40 U/L (16-63); AST 28 U/L (15-37); Albumin 4.2 g/dL (3.4-5.0); Alkaline Phosphatase 83 U/L (46-116); Anion Gap 9.8 mmol/L (3-11); BUN 19 mg/dL (7-18); Bilirubin, Total 0.7 mg/dL (0.2-1.0); CO2 28.2 mmol/L (21.0-32.0); CREATININE 1.1 mg/dL (0.70-1.30); Calcium 8.9 mg/dL (8.5-10.1); Chloride 106 mmol/L (98-107); Estimated GFR 74.96 (mL/min/1.73m2); Glucose 108 mg/dL (74-106); Potassium 3.8 mmol/L (3.5-5.1); Sodium 144 mmol/L (136-145); Total Protein 7.6 g/dL (6.4-8.2)
[2023-02-19] MEDS: Normal Saline - Diluent 50 ML VIAL IJ (09:46)
[2023-02-19] MEDS: Omnipaque 350 MG/ML 500 ML BTL-Imaging package 100 ML IJ (09:48)
--- NOTE | 2023-02-19 10:08 | DI.CT_ITS ---
Exam(s) CT CHEST/ABD/PEL W EXAM: CT CHEST/ABD/PEL W CLINICAL HISTORY: NEOPLASM ASCENDING COLON, C18.2, RESECTED COLON CA, MONITORING TECHNIQUE: Imaging Protocol: Axial computed tomography images with coronal and sagittal reformatted images were created and reviewed CONTRAST MATERIAL: Intravenous: Omnipaque 350 contrast volume:100 mL Oral: Yes COMPARISON: CT CT CHEST/ABD/PEL W from 08/01/2022 FINDINGS: CHEST: Tracheobronchial tree: Patent where visualized. Pulmonary parenchyma: No consolidation or dominant measurable mass. No architectural distortion. Ther e is a stable 3 mm perifissural nodule associated with the right minor fissure. No suspicious nodules are seen in the lungs. Dependent atelectasis is seen in the lung bases. Visualized thyroid gland: There is a stable left thyroid nodule. Mediastinum and Padmini: No dominant adenopathy or fluid collection. The esophagus is unremarkable. Pleura: No effusion or pneumothorax. Heart: The heart is not dilated. Marked coronary artery calcification is present. No pericardial effu emil. Pulmonary arteries: Due to bolus timing, pulmonary artery evaluation is suboptimal. No large central pulmonary embolus is present. Aorta: Thoracic aorta non-dilated. Atherosclerosis is present. No evidence of dissection. Lymph nodes: Within normal limits. Soft tissues: Unremarkable. Bones:Within normal limits for the patient's age. No aggressive osseous lesions. ABDOMEN: Liver: There does appear to be decreased attenuation of the liver suggesting fatty infiltration. The liver is mildly enlarged measuring 19 cm. No measurable mass. Portal, Superior Mesenteric, and Splenic Veins: Unremarkable. Gallbladder and Biliary Tract: There is a gallstone present. No biliary ductal dilatation. Pancreas: Normal density, no abnormal calcifications or inflammatory process. Spleen: Normal. Adrenals: No masses seen. Kidneys: Normal size, contour and axis. There is a 2 mm nonobstructing stone in the midpole of the le ft kidney. There are stable simple bilateral renal cysts. No follow-up is recommended. Abdominal Aorta: Abdominal portion non-dilated. Atherosclerosis is present. Bowel: Status post hemicolectomy. No evidence of bowel obstruction or bowel wall thickening. There ar e diverticula seen in the sigmoid colon, but no evidence of acute diverticulitis. Peritoneal Cavity: No ascites, collection or mesenteric inflammatory response. No free air. Lymph Nodes: Within normal limits. Bones: Within normal limits for the patient's age. No aggressive osseous lesions are present. Soft Tissues: Unremarkable. PELVIS: Bladder: Symmetric distention, no gross wall thickening. Reproductive Organs: Mildly enlarged prostate gland. Lymph Nodes: Within normal limits. Bones: Within normal limits. IMPRESSION: 1. No evidence of thoracic metastatic disease. 2. No evidence of abdominal or pelvic metastatic disease. 3. Status post hemicolectomy. RADIATION DOSE DELIVERED: 2,989.52mGy.cm Total DLP DATA REPOSITORY: All CT scans at this facility are submitted to the National Radiology Data Registry (NRDR) Dose Index Registry (DIR) with the [employer] (ACR). RADIATION OPTIMIZATION: All CT scans at this facility use at least one of these dose optimization te chniques: automated exposure control; mA and/or kV adjustment per patient size (includes targeted exa ms where dose is matched to clinical indication); or iterative reconstruction.
[2023-02-19 19:52] LABS: CEA 2.3 ng/mL (See Note)
== END 2023-02-19 02:18 ==
LOC: DI 01:59
PROVIDERS: PCP Legal Medicine; Visit Provider Nurse Practitioner Family
DX: Z98.890 Other specified postprocedural states (principal); C18.2 Malignant neoplasm of ascending colon
CPT/HCPCS: 74177; 80053; 71260; 82378; 85025

== ENCOUNTER 2023-06-03 19:41 | Outpatient (CLI) | payer MEDICARE, BC, SELFPAY | END 2023-06-03 19:42 | disposition home or self-care (01) | LOC: LBO 19:41 | PROVIDERS: PCP Legal Medicine; Visit Provider Internal Medicine Hematology & Oncology | DX: C18.4 Malignant neoplasm of transverse colon (principal) | CPT/HCPCS: 36415; 82378 ==

== ENCOUNTER → 2023-08-24 03:18 | Outpatient (CLI) | payer MEDICARE, BC, SELFPAY ==
[2023-08-24 07:46] LABS: Abs Immature Grans 0.06 10^3/uL (0.0-0.06); Absolute Basophil Count 0.04 10^3/uL (0.0-0.2); Absolute Lymphocyte Count 1.75 10^3/uL (1.2-3.4); Absolute Monocyte Count 0.52 10^3/uL (0.1-0.8); Absolute Neutrophil Count 4.38 10^3/uL (1.2-6.7); Basophils % 0.6; Eosinophils % 2.9; HCT 40.5 % (40.0-50.0); HGB 14.3 g/dL (13.5-17.5); Immature Grans % 0.9; Lymphocytes % 25.2; MCH 32.6 pg (27.0-33.0); MCHC 35.3 % (32.0-36.0); MCV 92 fL (80-95); MPV 9.1 fL (8.0-11.0); Monocytes % 7.5; Neutrophils % 62.9; Platelet Count 157 10^3/uL (130-400); RBC 4.39 10^6/uL (4.36-5.78); RDW-SD 43.2 fL; WBC 6.95 10^3/uL (4.4-10.8)
[2023-08-24 08:01] LABS: ALT 43 U/L (16-63); AST 36 U/L (15-37); Albumin 4.1 g/dL (3.4-5.0); Alkaline Phosphatase 62 U/L (46-116); Anion Gap 8.4 mmol/L (3-11); BUN 23 mg/dL (7-18); Bilirubin, Total 0.8 mg/dL (0.2-1.0); CO2 25.6 mmol/L (21.0-32.0); CREATININE 1.1 mg/dL (0.70-1.30); Calcium 9.1 mg/dL (8.5-10.1); Chloride 106 mmol/L (98-107); Glucose 108 mg/dL (74-106); Potassium 3.7 mmol/L (3.5-5.1); Sodium 140 mmol/L (136-145); Total Protein 7.4 g/dL (6.4-8.2)
[2023-08-24] MEDS: Normal Saline - Diluent 50 ML VIAL IJ (09:17)
[2023-08-24] MEDS: Omnipaque 350 MG/ML 500 ML BTL-Imaging package 100 ML IJ (09:18)
[2023-08-24] MEDS: Barium Sulfate 2% W/V-Creamy Vanilla Smoothie 450 ML BTL 900 ML PO (09:35)
--- NOTE | 2023-08-24 09:35 | DI.CT_ITS ---
Exam(s) CT CHEST/ABD/PEL W EXAM: CT CHEST/ABD/PEL W CLINICAL HISTORY: LOCALLY ADVANCED COLON CA, C18.4, RESECTED 2021, RT HEMICOLECTOMY. TECHNIQUE: Imaging Protocol: Axial computed tomography images with coronal and sagittal reformatted images were created and reviewed CONTRAST MATERIAL: Intravenous: Omnipaque 350 Contrast volume:100 ml Oral: yes / COMPARISON: CT CT CHEST/ABD/PEL W from 02/19/2023 FINDINGS: CHEST: Tracheobronchial tree: Patent where visualized. Pulmonary parenchyma: No consolidation or dominant measurable mass. Pleura: No effusion or pneumothorax. Lymph nodes: Within normal limits. Aorta: Thoracic portion non-dilated. Heart: Normal size. Coronary artery calcifications. No pericardial effusion. Bones: And degenerative changes in the spine with prominent endplate osteophytes. No lytic or blasti c lesions.No compression fractures. Thyroid: Stable left thyroid nodule. ABDOMEN and PELVIS: Liver: Enlarged. Moderate hepatic steatosis. No measurable mass. Gallbladder and biliary tract: Single large gallstone. No wall thickening. No biliary dilatation. Pancreas: Normal density, no abnormal calcifications or inflammatory process. Spleen: Normal. Kidneys: Normal size, contour and axis. An small nonobstructing stone left kidney. Small bilateral r enal cysts, stable. No follow-up recommended. No suspicious masses seen. Adrenal glands: No masses seen. Aorta: Abdominal portion non-dilated. Mild atherosclerotic changes. Lymph nodes: Within normal limits. Soft tissues: Loop of small bowel now enters umbilical hernia. No evidence of obstruction. Bladder: Unremarkable. Bowel: No obstruction or bowel wall thickening. Mild diverticulosis. No evidence of diverticulitis . Right hemicolectomy colonic anastomosis transverse colon is unremarkable.. Peritoneal cavity: No ascites. No focal collection or mesenteric inflammatory response. Bones: Unremarkable for age. Reproductive organs: Prostate mildly enlarged. IMPRESSION: No metastatic disease in the chest, abdomen or pelvis.. An umbilical hernia is now present containing a loop of nonobstructed small bowel. RADIATION DOSE DELIVERED: Total DLP DATA REPOSITORY: All CT scans at this facility are submitted to the National Radiology Data Registry (NRDR) Dose Index Registry (DIR) with the [employer] (ACR). RADIATION OPTIMIZATION: All CT scans at this facility use at least one of these dose optimization te chniques: automated exposure control; mA and/or kV adjustment per patient size (includes targeted exa ms where dose is matched to clinical indication); or iterative reconstruction.
[2023-08-24 19:33] LABS: CEA 1.9 ng/mL (See Note)
== END ==
PROVIDERS: PCP Legal Medicine; Visit Provider Nurse Practitioner Family
DX: C18.4 Malignant neoplasm of transverse colon (principal)
CPT/HCPCS: 74177; 80053; 71260; 82378; 85025

== ENCOUNTER 2023-09-29 05:39 | Emergency (ER) | payer MEDICARE, BC, SELFPAY ==
--- NOTE | 2023-09-29 05:45 | DI.CT_ITS ---
Exam(s) CT ABDOMEN PELVIS WO EXAM: CT ABDOMEN PELVIS WO CLINICAL HISTORY: left flank and abdominal pain, hx of colectomy. TECHNIQUE: Imaging Protocol: Axial computed tomography images with coronal and sagittal reformatted images were created and reviewed. Oral: / no COMPARISON: CT CT CHEST/ABD/PEL W from 08/24/2023 FINDINGS: ABDOMEN: Lung Bases: No acute findings. Liver: Enlarged. Moderate to severe hepatic steatosis. No measurable mass. Gallbladder and biliary tract: Single gallstone. No wall thickening. No dilation. Pancreas: Normal density, no abnormal calcifications or inflammatory process. Spleen: Normal. Kidneys: Normal size, contour and axis. 3 millimeter stone distal left ureter causing mild left hydro nephrosis. Mild perinephric stranding. No suspicious masses seen. Adrenal glands: No masses seen. Lymph nodes: Within normal limits. Abdominal Aorta: Abdominal portion non-dilated. Soft tissues: Similar appearance of hernia superior to the umbilicus containing nonobstructed loop of small bowel. PELVIS: Bladder: No wall thickening. No mass or calculi. Bowel: Status post right ace colectomy. Anastomosis unremarkable. No obstruction or bowel wall thi ckening. Mild diverticulosis. Peritoneal cavity: No ascites, collection or mesenteric inflammatory response. Reproductive organs: Prostate mildly enlarged Bones: Unremarkable for age.. IMPRESSION: 3 millimeter stone distal left ureter causing mild left hydronephrosis. Stable appearance of midline abdominal wall hernia without evidence of obstruction. RADIATION DOSE DELIVERED: Total DLP DATA REPOSITORY: All CT scans at this facility are submitted to the National Radiology Data Registry (NRDR) Dose Index Registry (DIR) with the [employer] (ACR). RADIATION OPTIMIZATION: All CT scans at this facility use at least one of these dose optimization te chniques: automated exposure control; mA and/or kV adjustment per patient size (includes targeted exa ms where dose is matched to clinical indication); or iterative reconstruction.
[2023-09-29 05:49] VITALS: BP 169/98; PULSE 80; RESP 18; TEMP 36.6; O2SAT 97
[2023-09-29] MEDS: Ketorolac 15 MG/ML VIAL IVP (06:15)
[2023-09-29] MEDS: Normal Saline 1,000 ML 1000 ML IV (06:16)
[2023-09-29 06:28] VITALS: BP 177/88; PULSE 80; RESP 20; TEMP 36.7; O2SAT 98
[2023-09-29 06:35] LABS: Lactate 2.3 mmol/L (0.6-1.4)
[2023-09-29 06:37] LABS: Abs Immature Grans 0.07 10^3/uL (0.0-0.06); Absolute Basophil Count 0.04 10^3/uL (0.0-0.2); Absolute Eosinophil Count 0.13 10^3/uL (0.0-0.7); Absolute Lymphocyte Count 1.29 10^3/uL (1.2-3.4); Absolute Monocyte Count 1.13 10^3/uL (0.1-0.8); Absolute Neutrophil Count 11.48 10^3/uL (1.2-6.7); Basophils % 0.3; Eosinophils % 0.9; HCT 44.4 % (40.0-50.0); HGB 15.8 g/dL (13.5-17.5); Immature Grans % 0.5; Lymphocytes % 9.1; MCH 33.2 pg (27.0-33.0); MCHC 35.6 % (32.0-36.0); MCV 93 fL (80-95); MPV 9.4 fL (8.0-11.0); Neutrophils % 81.2; Platelet Count 164 10^3/uL (130-400); RBC 4.76 10^6/uL (4.36-5.78); RDW 12.3 % (11.8-14.1); RDW-SD 42.5 fL; WBC 14.14 10^3/uL (4.4-10.8)
[2023-09-29 06:38] LABS: Bilirubin Negative (Negative); Blood Small (Negative); Clarity Clear (Clear); Glucose Negative (Negative); Ketones 15 mg/dL (Negative); Leukocyte Esterase Negative (Negative); Nitrite Negative (Negative); Specific Gravity 1.025 (1.005-1.025); Urobilinogen 0.2 mg/dL (Up to 0.2); pH 5.5 (5-8)
[2023-09-29 06:44] LABS: Bacteria Rare HPF (Negative); Crystals Negative HPF (Negative); Epithelial Cells Rare HPF (Negative); Mucus Trace (Negative); WBC 0-2 HPF (0-5)
[2023-09-29 06:45] LABS: C & S Indicated? No; Casts 0-2 Hyaline LPF (Negative)
[2023-09-29 06:51] LABS: ALT 52 U/L (16-63); AST 36 U/L (15-37); Albumin 4.5 g/dL (3.4-5.0); Alkaline Phosphatase 75 U/L (46-116); Anion Gap 11.5 mmol/L (3-11); BUN 28 mg/dL (7-18); Bilirubin, Total 1.2 mg/dL (0.2-1.0); CO2 25.5 mmol/L (21.0-32.0); CREATININE 1.8 mg/dL (0.70-1.30); Calcium 9.7 mg/dL (8.5-10.1); Chloride 103 mmol/L (98-107); Estimated GFR 41.26 (mL/min/1.73m2); Glucose 126 mg/dL (74-106); Potassium 4.3 mmol/L (3.5-5.1); Sodium 140 mmol/L (136-145); Total Protein 8.2 g/dL (6.4-8.2)
--- NOTE | 2023-09-29 07:05 | W.ED.GENAD ---
Discharge Plan Disposition Patient Disposition: Home Condition: Good Discharge Details Clinical Impression: Kidney stone Primary Care Provider: Ashia Amos ED Provider: Mil Jordan Home Meds and New Rx's Prescriptions: New tamsulosin [Flomax] 0.4 mg capsule 0.4 mg PO DAILY Qty: 10 0RF No Action amlodipine 10 mg tablet PO Patient Comments: TAKE ONE TABLET BY MOUTH ONE TIME DAILY. Discharge Instructions Instructions: Kidney Stones (ED) Additional Instructions: At this time you have evidence of a small kidney stone. This is likely the cause of your symptoms. This should pass within the next 12 to 48 hours, if not earlier. Please drink plenty of fluids, 10 to 12 cups/day at least. Please take 1000 mg of Tylenol every 6 hours as needed for pain. These are the maximum doses of these medicines. Please take the Flomax as directed. This will help in expediting the passage of your kidney stone. If your pain stops, you can stop taking the Flomax. Please strain your urine to collect the stone. This can then be analyzed by your family doctor. If you do not have resolution of your symptoms after 48 to 72 hours please follow-up closely with your family doctor or return here for reassessment. If you notice any worsening of your symptoms, or any new symptoms such as inability to urinate, vomiting, diarrhea, fever, chills, shortness of breath, chest pain, numbness, weakness, or fainting , please return immediately to the emergency department for reevaluation. Please follow up with your primary care provider as soon as possible for reassessment and reevaluation. As always, it was a pleasure participating in your medical care today. Referrals: Shai Waller MD [ [facility] STAFF PHYSICIAN] - Ashia Amos [Primary Care Provider] - Discharge Data Discharge Date/Time-TO BE ENTERED AT DEPARTURE: 09/29/23 09:07 Medical Decision Making 63-year-old male with a past medical history of colon cancer in 2020 with treatment and surgery with ostomy and colectomy and reanastomosis, who presents today for evaluation of abdominal pain. Patient states that starting yesterday morning he developed some left sided/left flank abdominal pain. It comes and goes in severity. Radiates from the left side to the left back. He denies any nausea vomiting or diarrhea. He denies any blood in his urine. He denies a history of kidney stones. No dysuria. No other complaints at this time. No other modifying factors. Exam demonstrates tenderness in the left flank and left lower quadrant of his abdomen. No guarding or rebound. Differential includes diverticulitis, urolithiasis, less likely obstruction. Will get a CT scan, monitor closely and reassess. 7 AM Laboratory workup shows mild white count of 14, lactate of 2.3, electrolytes normal, creatinine of 1.8, GFR 41. His creatinine is slightly higher than normal. Urinalysis shows no evidence of infection, there is evidence of RBCs. Negative nitrates. Negative leuk esterase. Personal review of CT scan shows evidence of urolithiasis on the left. Pending formal read. Will give Flomax, Axel Mab, Toradol. 7:[address] shows evidence of a left ureteral calculus, it is 3 mm in the distal ureter. No evidence of infection in the urine. No leukocyte esterase, nitrates, or WBCs. Patient has no fever. Symptoms inconsistent with pyelonephritis. Repeat lactate was drawn and is normal. Patient's pain is completely resolved. Patient stable for discharge. Recommend close follow-up with urology. Discussed red flags which to return. I have extensively reviewed the treatment plan and discharge instructions with the patient. I have addressed all patient concerns at this time. The patient was made aware of what symptoms to monitor for that would warrant a return to the emergency department. Discussed the plan with the patient, they demonstrate verbal understanding and agreement with our assessment and plan at this time. The documentation in this chart was dictated using [employer] dictation software. Please excuse any dictation errors. FINDINGS: Limitations: Mild motion artifact. No contrast was administered, limiting evaluation for some pathologies. Liver: Hepatomegaly. Gallbladder and bile ducts: Large calculus in the gallbladder neck. Pancreas: No CT evidence for acute pancreatitis. Spleen: Splenomegaly. Adrenal glands: No mass. Kidneys and ureters: Left renal cyst. Left hydroureteronephrosis with perinephric and periureteral stranding. 3 mm calculus in the distal left ureter within the pelvis. Stomach and bowel: No intestinal obstruction is evident. Fluid in nondilated small bowel, nonspecific. Colonic diverticula are identified but there is no CT evidence for diverticulitis. Partial colectomy. Appendix: No evidence of appendicitis. Intraperitoneal space: No free air. Vasculature: Arterial calcifications. Lymph nodes: Nonspecific mesenteric lymph nodes. Urinary bladder: No acute findings. Reproductive: Enlarged prostate with calcifications, indenting the posterior bladder. Bones/joints: No pertinent acute abnormality seen. Soft tissues: Anterior abdominal wall laxity. Multiple midline ventral hernias containing small bowel. No evidence for associated obstruction at this time. Small fat containing bilateral inguinal hernias. IMPRESSION: 1. Obstructing left ureteral calculus. 2. Additional findings as above. Thank you for allowing us to participate in the care of your patient. Dictated and Authenticated by: Laura Currie MD 09/29/2023 7:18 AM Eastern Time ([place] & [place]) HPI General Date/Time Provider Initiated Documentation: 09/29/23 05:49. HPI Narrative: 63-year-old male with a past medical history of colon cancer in 2020 with treatment and surgery with ostomy and colectomy and reanastomosis, who presents today for evaluation of abdominal pain. Patient states that starting yesterday morning he developed some left sided/left flank abdominal pain. It comes and goes in severity. Radiates from the left side to the left back. He denies any nausea vomiting or diarrhea. He denies any blood in his urine. He denies a history of kidney stones. No dysuria. No other complaints at this time. No other modifying factors. Related Data Home Medications Medication Instructions Recorded Confirmed amlodipine 10 mg tablet mg PO 09/29/23 tamsulosin 0.4 mg capsule (Flomax) 0.4 mg PO DAILY #10 caps 09/29/23 Previous Rx's Medication Instructions Recorded tamsulosin 0.4 mg capsule (Flomax) 0.4 mg PO DAILY #10 caps 09/29/23 Allergies Allergy/AdvReac Type Severity Reaction Status Date / Time nitroglycerin AdvReac Unknown Unverified 09/29/23 05:58 General Stated Complaint: Abd Prob JADEN: 3 Review of Systems All systems reviewed & are unremarkable except as noted in HPI and below PFSH All Active Problems (Updated 09/29/23 @ 07:35 by Mil Jordan DO) Kidney stone (Chronic) Social History Smoking/Tobacco Use Status: Former Tobacco Use Smoking risk assessment performed?: Yes Alcohol Intake: former Substance use type: does not use Housing: house Exam Narrative Exam Narrative: 1.Const: Well-nourished, Well-developed, appearing stated age 2.Eyes: PERRL, no conjunctival injection, and symmetrical lids. 3.ENT: Atraumatic external nose and ears. Moist MM. Neck: Symmetric, trachea midline, No thyromegaly. 4.CVS: +S1/S2, No murmurs or gallops. Peripheral pulses 2+ and equal in all extremities. Brisk capillary refill in all extremities. 5.RESP: Unlabored respiratory effort. Clear to auscultation bilaterally. No wheezes rales or rhonchi 6.GI: Soft, mild left lower quadrant abdominal tenderness, notable left-sided CVA tenderness. No pain to McBurney's point. Negative Brumfield sign. 7.MSK: Normocephalic/Atraumatic, Extremities w/o deformity or ttp No cyanosis or clubbing, Normal movement of all extremities 8.Skin: Warm, Dry. No rashes or lesions. 9.Neuro: commercial drafter II-XII grossly intact. Sensation grossly intact, no focal neurologic deficits. 10.Psych: (AAO) x3. Appropriate mood and affect Course Vital Signs Vital signs: Vital Signs Temperature 36.6 C 09/29/23 05:49 Pulse 80 09/29/23 05:49 Respiratory Rate 18 09/29/23 05:49 Blood Pressure 169/98 H 09/29/23 05:49 Pulse Oximetry 97 09/29/23 05:49 Temperature 36.7 C 09/29/23 06:28 Temperature Source Oral 09/29/23 06:28 Pulse 80 09/29/23 06:28 Respiratory Rate 20 09/29/23 06:28 Blood Pressure 177/88 H 09/29/23 06:28 Pulse Oximetry 98 09/29/23 06:28 Oxygen Delivery Method Room Air 09/29/23 06:28 Oxygen Flow Rate 0 09/29/23 05:49 Pain Level 8 09/29/23 06:28 Lab/Test Results Lab/Test Results: Laboratory Tests Range/Units 09/29/23 06:20 WBC (4.4-10.8) 10^3/uL 14.14 H RBC (4.36-5.78) 10^6/uL 4.76 Hgb (13.5-17.5) g/dL 15.8 Hct (40.0-50.0) % 44.4 MCV (80-95) fL 93 MCH (27.0-33.0) pg 33.2 H MCHC (32.0-36.0) % 35.6 RDW (11.8-14.1) % 12.3 Plt Count (130-400) 10^3/uL 164 MPV (8.0-11.0) fL 9.4 Immature Gran % 0.5 Neutrophils % 81.2 Lymphocytes % 9.1 Monocytes % 8.0 Eosinophils % 0.9 Basophils % 0.3 Nucleated RBC % (0.0-0.3) % 0.0 Absolute Neutrophils (1.2-6.7) 10^3/uL 11.48 H Absolute Lymphocytes (1.2-3.4) 10^3/uL 1.29 Absolute Monocytes (0.1-0.8) 10^3/uL 1.13 H Absolute Eosinophils (0.0-0.7) 10^3/uL 0.13 Absolute Basophils (0.0-0.2) 10^3/uL 0.04 VBG Lactate (0.6-1.4) mmol/L 2.3 H* Sodium (136-145) mmol/L 140 Potassium (3.5-5.1) mmol/L 4.3 Chloride (98-107) mmol/L 103 Carbon Dioxide (21.0-32.0) mmol/L 25.5 Anion Gap (3-11) mmol/L 11.5 H BUN (7-18) mg/dL 28 H Creatinine (0.70-1.30) mg/dL 1.8 H Est GFR (CKD-EPI 2020) (mL/min/1.73m2) 41.26 Glucose (74-106) mg/dL 126 H Calcium (8.5-10.1) mg/dL 9.7 Total Bilirubin (0.2-1.0) mg/dL 1.2 H AST (15-37) U/L 36 ALT (16-63) U/L 52 Alkaline Phosphatase (46-116) U/L 75 Total Protein (6.4-8.2) g/dL 8.2 Albumin (3.4-5.0) g/dL 4.5 Urine Color (Yellow) Yellow Urine Clarity (Clear) Clear Urine pH (5-8) 5.5 Ur Specific [place] (1.005-1.025) 1.025 Urine Protein (Negative) mg/dL Negative Urine Ketones (Negative) mg/dL 15 H Urine Blood (Negative) Small H Urine Nitrite (Negative) Negative Urine Bilirubin (Negative) Negative Urine Urobilinogen (Up to 0.2) mg/dL 0.2 Ur Leukocyte Esterase (Negative) Negative Urine RBC (0-2) HPF 5-10 H Urine WBC (0-5) HPF 0-2 Ur Epithelial Cells (Negative) HPF Rare Urine Crystals (Negative) HPF Negative Urine Bacteria (Negative) HPF Rare Urine Casts (Negative) LPF 0-2 Hyaline Urine Mucus (Negative) Trace Ur Culture Indicated? No Urine Glucose (Negative) mg/dL Negative
--- NOTE | 2023-09-29 07:18 | DI.VRAD_ITS ---
PROCEDURE INFORMATION: Exam: CT Abdomen And Pelvis Without Contrast Exam date and time: 09/29/2023 6:38 AM Age: 63 years old Clinical indication: Other: Lt flank pain HX colectomy TECHNIQUE: Imaging protocol: Computed tomography of the abdomen and pelvis without contrast. COMPARISON: CT CHEST/ABD/PEL W 08/24/2023 9:20 AM FINDINGS: Limitations: Mild motion artifact. No contrast was administered, limiting evaluation for some pathologies. Liver: Hepatomegaly. Gallbladder and bile ducts: Large calculus in the gallbladder neck. Pancreas: No CT evidence for acute pancreatitis. Spleen: Splenomegaly. Adrenal glands: No mass. Kidneys and ureters: Left renal cyst. Left hydroureteronephrosis with perinephric and periureteral stranding. 3 mm calculus in the distal left ureter within the pelvis. Stomach and bowel: No intestinal obstruction is evident. Fluid in nondilated small bowel, nonspecific. Colonic diverticula are identified but there is no CT evidence for diverticulitis. Partial colectomy. Appendix: No evidence of appendicitis. Intraperitoneal space: No free air. Vasculature: Arterial calcifications. Lymph nodes: Nonspecific mesenteric lymph nodes. Urinary bladder: No acute findings. Reproductive: Enlarged prostate with calcifications, indenting the posterior bladder. Bones/joints: No pertinent acute abnormality seen. Soft tissues: Anterior abdominal wall laxity. Multiple midline ventral hernias containing small bowel. No evidence for associated obstruction at this time. Small fat containing bilateral inguinal hernias. IMPRESSION: 1. Obstructing left ureteral calculus. 2. Additional findings as above. Dictated and Authenticated by: Laura Currie MD. Ordering:TORRES Jaeger MD
[2023-09-29] MEDS: Tamsulosin 0.4 MG CAPCR PO (07:22)
[2023-09-29] MEDS: ACETAMINOPHEN 1,000 MG/100 ML BTL 400 MG IVPB (07:22)
--- NOTE | 2023-09-29 07:38 | NUR.NOTE ---
Referral faxed to Dr Waller's office for kidney stones, to be seen in a couple of weeks.
[2023-09-29 08:46] LABS: Lactate 1.5 mmol/L (0.6-1.4)
--- NOTE | 2023-09-29 08:49 | W.EDPROG ---
Date of service: 09/29/23 Time of Service: 08:49 Medical Decision Making Repeat lactate within normal limits. DC per Dr. Jordan plan and instructions. Discharge Plan Disposition Patient Disposition: Home Condition: Good Discharge Details Clinical Impression: Kidney stone Primary Care Provider: Ashia Amos ED Provider: Mil Jordan Home Meds and New Rx's Prescriptions: New tamsulosin [Flomax] 0.4 mg capsule 0.4 mg PO DAILY Qty: 10 0RF No Action amlodipine 10 mg tablet PO Patient Comments: TAKE ONE TABLET BY MOUTH ONE TIME DAILY. Discharge Instructions Instructions: Kidney Stones (ED) Additional Instructions: At this time you have evidence of a small kidney stone. This is likely the cause of your symptoms. This should pass within the next 12 to 48 hours, if not earlier. Please drink plenty of fluids, 10 to 12 cups/day at least. Please take 1000 mg of Tylenol every 6 hours as needed for pain. These are the maximum doses of these medicines. Please take the Flomax as directed. This will help in expediting the passage of your kidney stone. If your pain stops, you can stop taking the Flomax. Please strain your urine to collect the stone. This can then be analyzed by your family doctor. If you do not have resolution of your symptoms after 48 to 72 hours please follow-up closely with your family doctor or return here for reassessment. If you notice any worsening of your symptoms, or any new symptoms such as inability to urinate, vomiting, diarrhea, fever, chills, shortness of breath, chest pain, numbness, weakness, or fainting , please return immediately to the emergency department for reevaluation. Please follow up with your primary care provider as soon as possible for reassessment and reevaluation. As always, it was a pleasure participating in your medical care today. Referrals: Shai Waller MD [ [facility] STAFF PHYSICIAN] - Ashia Amos [Primary Care Provider] -
[2023-09-29 09:00] VITALS: BP 161/84; PULSE 72; TEMP 36.5; O2SAT 98
== END 2023-09-29 09:07 | disposition home or self-care (01) ==
PROVIDERS: Emergency Provider Student in an Organized Health Care Education/Training Program; PCP Legal Medicine
DX: N20.0 Calculus of kidney (principal); R10.32 Left lower quadrant pain; Z85.038 Personal history of other malignant neoplasm of large intestine
CPT/HCPCS: 00123; 80053; 96365; 96375; 99284; 74176; 81003; 81015; 83605; 85025; 99283; J0131; J1885

== ENCOUNTER 2023-10-02 05:32 | Emergency (ER) | payer MEDICARE, BC, SELFPAY ==
[2023-10-02 05:37] VITALS: BP 157/84; PULSE 92; RESP 24; TEMP 36.6; O2SAT 99
--- NOTE | 2023-10-02 05:38 | W.ED.GENAD ---
Discharge Plan Disposition Patient Disposition: Home Condition: Good Discharge Details Clinical Impression: Kidney stone Primary Care Provider: Ashia Amos ED Provider: Mil Jordan Home Meds and New Rx's Prescriptions: New ketorolac 10 mg tablet 10 mg PO TID 5 Days Qty: 15 0RF No Action amlodipine 10 mg tablet 10 mg PO DAILY Patient Comments: TAKE ONE TABLET BY MOUTH ONE TIME DAILY. tamsulosin [Flomax] 0.4 mg capsule 0.4 mg PO DAILY Qty: 10 0RF metoprolol succinate 50 mg tablet extended release 24 hr 50 mg PO DAILY Patient Comments: TAKE ONE TABLET BY MOUTH ONE TIME DAILY 90 Discharge Instructions Instructions: Kidney Stones (ED) Additional Instructions: At this time you thankfully show no evidence of infection in your urine. Your kidney stone is likely at the very end of its course. Please take the ketorolac/Toradol as well as the Tylenol as directed. Continue to take your Flomax. Dr. Waller's office will contact you shortly to set up an appointment for a potential stent. If you notice any worsening of your symptoms, or any new symptoms such as vomiting, diarrhea, fever, chills, shortness of breath, chest pain, numbness, weakness, or fainting , please return immediately to the emergency department for reevaluation. Please follow up with your primary care provider as soon as possible for reassessment and reevaluation. As always, it was a pleasure participating in your medical care today. Referrals: Shai Waller MD [ [facility] STAFF PHYSICIAN] - Ashia Amos [Primary Care Provider] - Medical Decision Making 63-year-old male with a past medical history of colon cancer in 2020 with treatment and surgery with ostomy and colectomy and reanastomosis, recent 3 mm kidney stone diagnosed 3 days ago is present in the left ureter at the distal aspect, presents today for return of left flank pain. Patient states that he has been taking the Flomax and other medications as prescribed, in the mornings for the last 2 days pain was fairly moderate but it would get better as the day went on. However this morning pain was severe and he could no longer take it. He came back for further assessment. He denies any other new symptoms. He does have some nausea but no vomiting. No diarrhea. No fever. No other complaints at this time. Exam demonstrates an in pain male, left CVA tenderness. Persistent pain from his urolithiasis is highest on the differential. We will check for urinary infection, renal function, monitor closely and reassess. 7:21 AM Laboratory workup demonstrates no evidence of infection in the urine. No leuk esterase or nitrites. Minimal white count. No fever. Renal function stable. On reassessment patient's pain is completely resolved. He feels much better. I did contact Dr. Waller, and his office will contact the patient today to set up potential stenting. Patient will be given prescription for Toradol for home, he has Flomax and will continue taking Tylenol. Discussed red flags which to return. I have extensively reviewed the treatment plan and discharge instructions with the patient and their family. I have addressed all patient concerns at this time. The patient and family was made aware of what symptoms to monitor for that would warrant a return to the emergency department. Discussed the plan with the patient and family, they demonstrate verbal understanding and agreement with our assessment and plan at this time. The documentation in this chart was dictated using [employer] dictation software. Please excuse any dictation errors. HPI General Date/Time Provider Initiated Documentation: 10/02/23 05:33. HPI Narrative: 63-year-old male with a past medical history of colon cancer in 2020 with treatment and surgery with ostomy and colectomy and reanastomosis, recent 3 mm kidney stone diagnosed 3 days ago is present in the left ureter at the distal aspect, presents today for return of left flank pain. Patient states that he has been taking the Flomax and other medications as prescribed, in the mornings for the last 2 days pain was fairly moderate but it would get better as the day went on. However this morning pain was severe and he could no longer take it. He came back for further assessment. He denies any other new symptoms. He does have some nausea but no vomiting. No diarrhea. No fever. No other complaints at this time. Related Data Home Medications Medication Instructions Recorded Confirmed amlodipine 10 mg tablet 10 mg PO DAILY 09/29/23 10/02/23 tamsulosin 0.4 mg capsule (Flomax) 0.4 mg PO DAILY #10 caps 09/29/23 10/02/23 ketorolac 10 mg tablet 10 mg PO TID 5 days #15 tabs 12/29/23 metoprolol succinate 50 mg 50 mg PO DAILY 10/02/23 10/02/23 tablet,extended release 24 hr Previous Rx's Medication Instructions Recorded tamsulosin 0.4 mg capsule (Flomax) 0.4 mg PO DAILY #10 caps 09/29/23 ketorolac 10 mg tablet 10 mg PO TID 5 days #15 tabs 10/02/23 Allergies Allergy/AdvReac Type Severity Reaction Status Date / Time nitroglycerin AdvReac Unknown Unverified 10/02/23 05:35 General JADEN: 3 Review of Systems All systems reviewed & are unremarkable except as noted in HPI and below PFSH All Active Problems (Updated 10/02/23 @ 07:20 by Mil Jordan DO) Kidney stone (Chronic) Social History Smoking/Tobacco Use Status: Former Tobacco Use Smoking risk assessment performed?: Yes Alcohol Intake: former Substance use type: does not use Housing: house Do you feel safe at home: Yes Do you feel safe in your relationship?: Yes Exam Narrative Exam Narrative: 1.Const: Well-nourished, Well-developed, appearing stated age 2.Eyes: PERRL, no conjunctival injection, and symmetrical lids. 3.ENT: Atraumatic external nose and ears. Moist MM. Neck: Symmetric, trachea midline, No thyromegaly. 4.CVS: +S1/S2, No murmurs or gallops. Peripheral pulses 2+ and equal in all extremities. Brisk capillary refill in all extremities. 5.RESP: Unlabored respiratory effort. Clear to auscultation bilaterally. No wheezes rales or rhonchi 6.GI: Soft, Nontender/Nondistended, No hepatosplenomegaly. No guarding or rebound. Left CVA tenderness 7.MSK: Normocephalic/Atraumatic, Extremities w/o deformity or ttp No cyanosis or clubbing, Normal movement of all extremities 8.Skin: Warm, Dry. No rashes or lesions. 9.Neuro: director investment banking II-XII grossly intact. Sensation grossly intact, no focal neurologic deficits. 10.Psych: (AAO) x3. Appropriate mood and affect
[2023-10-02] MEDS: Tamsulosin 0.4 MG CAPCR 0.8 MG PO (05:45)
[2023-10-02] MEDS: Ondansetron 4 MG/2 ML VIAL IVP (05:45)
[2023-10-02] MEDS: Ketorolac 15 MG/ML VIAL IVP (05:46)
[2023-10-02] MEDS: Normal Saline 1,000 ML 1000 ML IV (05:47)
[2023-10-02 06:01] LABS: Abs Immature Grans 0.06 10^3/uL (0.0-0.06); Absolute Basophil Count 0.04 10^3/uL (0.0-0.2); Absolute Eosinophil Count 0.12 10^3/uL (0.0-0.7); Absolute Lymphocyte Count 1.13 10^3/uL (1.2-3.4); Absolute Monocyte Count 1.01 10^3/uL (0.1-0.8); Absolute Neutrophil Count 9.44 10^3/uL (1.2-6.7); Basophils % 0.3; HCT 42.6 % (40.0-50.0); HGB 15.2 g/dL (13.5-17.5); Immature Grans % 0.5; Lymphocytes % 9.6; MCH 32.9 pg (27.0-33.0); MCHC 35.7 % (32.0-36.0); MCV 92 fL (80-95); MPV 9.2 fL (8.0-11.0); Monocytes % 8.6; Platelet Count 165 10^3/uL (130-400); RBC 4.62 10^6/uL (4.36-5.78); RDW 12.5 % (11.8-14.1); RDW-SD 42.3 fL
[2023-10-02 06:17] LABS: ALT 37 U/L (16-63); AST 20 U/L (15-37); Albumin 4.4 g/dL (3.4-5.0); Alkaline Phosphatase 74 U/L (46-116); Anion Gap 15.2 mmol/L (3-11); BUN 24 mg/dL (7-18); CO2 21.8 mmol/L (21.0-32.0); CREATININE 1.7 mg/dL (0.70-1.30); Calcium 9.4 mg/dL (8.5-10.1); Chloride 103 mmol/L (98-107); Estimated GFR 44.18 (mL/min/1.73m2); Glucose 138 mg/dL (74-106); Potassium 4.1 mmol/L (3.5-5.1); Sodium 140 mmol/L (136-145); Total Protein 8.4 g/dL (6.4-8.2)
[2023-10-02 06:51] LABS: Bilirubin Negative (Negative); Blood Large (Negative); Clarity Clear (Clear); Glucose Negative (Negative); Ketones Trace mg/dL (Negative); Leukocyte Esterase Negative (Negative); Nitrite Negative (Negative); Specific Gravity 1.025 (1.005-1.025); Urobilinogen 0.2 mg/dL (Up to 0.2); pH 5.5 (5-8)
[2023-10-02 07:01] LABS: Bacteria Negative HPF (Negative); C & S Indicated? C&S Done As Ordered; Casts Negative LPF (Negative); Crystals Negative HPF (Negative); Epithelial Cells Few HPF (Negative); Mucus Trace (Negative); RBC 20-50 HPF (0-2); WBC 0-2 HPF (0-5)
== END 2023-10-02 07:27 | disposition home or self-care (01) ==
PROVIDERS: Emergency Provider Student in an Organized Health Care Education/Training Program; PCP Legal Medicine
DX: R10.32 Left lower quadrant pain (principal); N20.0 Calculus of kidney; Z85.038 Personal history of other malignant neoplasm of large intestine
CPT/HCPCS: 80053; 96361; 96374; 96375; 99284; 81003; 81015; 85025; 87086; 99283; J1885; J2405

== ENCOUNTER 2023-12-02 03:10 | Outpatient (CLI) | payer MEDICARE, BC, SELFPAY ==
[2023-12-02 09:34] LABS: Abs Immature Grans 0.07 10^3/uL (0.0-0.06); Absolute Basophil Count 0.05 10^3/uL (0.0-0.2); Absolute Eosinophil Count 0.21 10^3/uL (0.0-0.7); Absolute Lymphocyte Count 1.59 10^3/uL (1.2-3.4); Absolute Monocyte Count 0.51 10^3/uL (0.1-0.8); Absolute Neutrophil Count 3.69 10^3/uL (1.2-6.7); Basophils % 0.8; Eosinophils % 3.4; HCT 40.6 % (40.0-50.0); HGB 14.7 g/dL (13.5-17.5); Immature Grans % 1.1; MCHC 36.2 % (32.0-36.0); MCV 91 fL (80-95); MPV 9.4 fL (8.0-11.0); Monocytes % 8.3; Neutrophils % 60.4; Platelet Count 144 10^3/uL (130-400); RBC 4.46 10^6/uL (4.36-5.78); RDW-SD 42.5 fL; WBC 6.12 10^3/uL (4.4-10.8)
[2023-12-02 09:47] LABS: ALT 37 U/L (16-63); AST 26 U/L (15-37); Albumin 4.2 g/dL (3.4-5.0); Alkaline Phosphatase 66 U/L (46-116); Anion Gap 11.8 mmol/L (3-11); BUN 23 mg/dL (7-18); Bilirubin, Total 0.8 mg/dL (0.2-1.0); CO2 27.2 mmol/L (21.0-32.0); CREATININE 1.1 mg/dL (0.70-1.30); Calcium 9.2 mg/dL (8.5-10.1); Chloride 104 mmol/L (98-107); Glucose 113 mg/dL (74-106); Potassium 4.1 mmol/L (3.5-5.1); Sodium 143 mmol/L (136-145); Total Protein 7.5 g/dL (6.4-8.2)
[2023-12-02 17:05] LABS: CEA 1.4 ng/mL (See Note)
== END 2023-12-02 03:11 | disposition home or self-care (01) ==
PROVIDERS: PCP Legal Medicine; Visit Provider Nurse Practitioner Family
DX: C18.4 Malignant neoplasm of transverse colon (principal)
CPT/HCPCS: 36415; 80053; 82378; 85025

== ENCOUNTER → 2024-02-19 00:31 | Outpatient (CLI) | payer MEDICARE, BC, SELFPAY ==
--- NOTE | 2024-02-19 | DI.CT_ITS ---
Exam(s) CT CHEST/ABD/PEL W EXAM: CT CHEST/ABD/PEL W CLINICAL HISTORY: Malignant neoplasm of ascending colon, C18.2 TECHNIQUE: Imaging Protocol: Axial computed tomography images with coronal and sagittal reformatted images were created and reviewed CONTRAST MATERIAL: Intravenous: Omnipaque 350 contrast volume:100 mL Oral: Yes COMPARISON: CT CT CHEST/ABD/PEL W from 02/19/[address] CHEST/ABD/PEL W from 08/24/[address] ABDOMEN PELVIS WO from 09/29/2023 FINDINGS: CHEST: Tracheobronchial tree: Patent where visualized. Pulmonary parenchyma: No consolidation or dominant measurable mass. No architectural distortion. Mild dependent atelectasis. Visualized thyroid gland: Unremarkable. There is a stable 2.8 cm left thyroid nodule. Mediastinum and Padmini: No dominant adenopathy or fluid collection. The esophagus is unremarkable. Pleura: No effusion or pneumothorax. Heart: The heart is not dilated. Coronary artery calcifications are present. No pericardial effusion . Pulmonary arteries: Due to the timing of the bolus, segmental subsegmental pulmonary artery opacifica tion is suboptimal for evaluation of emboli. No large central pulmonary embolus is present. Aorta: Thoracic aorta non-dilated. No evidence of dissection. Atherosclerotic calcification is prese nt. Lymph nodes: Within normal limits. Soft tissues: Unremarkable. Bones:Within normal limits for the patient's age. No aggressive osseous lesions are present. ABDOMEN: Liver: There is decreased attenuation of the liver. The liver measures 20.2 cm long. No measurable mass. Portal, Superior Mesenteric, and Splenic Veins: Unremarkable. Gallbladder and Biliary Tract: Cholelithiasis. There is no biliary ductal dilatation. Pancreas: Normal density, no abnormal calcifications or inflammatory process. Spleen: The spleen measures 16 cm long. Adrenals: No masses seen. Kidneys: Normal size, contour and axis. No radiodense stones or obstructive uropathy. Bilateral renal cysts. No follow-up is recommended. Abdominal Aorta: Abdominal portion non-dilated. Atherosclerotic calcification is present. Bowel: The patient is status post subtotal colectomy. No bowel wall thickening or obstruction is see n. There is diverticulosis of the colon but no evidence of acute diverticulitis. Peritoneal Cavity: No ascites, collection or mesenteric inflammatory response. No free air. Lymph Nodes: Within normal limits. Bones: Within normal limits for the patient's age. No aggressive osseous lesions. Soft Tissues: There is a fat containing umbilical hernia. PELVIS: Bladder: Symmetric distention, no gross wall thickening. Reproductive Organs: Unremarkable as visualized. Lymph Nodes: Within normal limits. Bones: Within normal limits. IMPRESSION: 1. No evidence of thoracic, abdominal or pelvic metastatic disease. 2. Status post subtotal colectomy. 3. Hepatic steatosis. Hepatosplenomegaly. 4. Cholelithiasis. RADIATION DOSE DELIVERED: 2,696.14mGy.cm Total DLP DATA REPOSITORY: All CT scans at this facility are submitted to the National Radiology Data Registry (NRDR) Dose Index Registry (DIR) with the [employer] (ACR). RADIATION OPTIMIZATION: All CT scans at this facility use at least one of these dose optimization te chniques: automated exposure control; mA and/or kV adjustment per patient size (includes targeted exa ms where dose is matched to clinical indication); or iterative reconstruction.
[2024-02-19] MEDS: Barium Sulfate 2% W/V-Berry Smoothie 450 ML BTL PO ×2 (07:52→07:53)
[2024-02-19 09:06] LABS: Abs Immature Grans 0.05 10^3/uL (0.0-0.06); Absolute Basophil Count 0.05 10^3/uL (0.0-0.2); Absolute Lymphocyte Count 1.62 10^3/uL (1.2-3.4); Absolute Monocyte Count 0.59 10^3/uL (0.1-0.8); Absolute Neutrophil Count 3.58 10^3/uL (1.2-6.7); Basophils % 0.8 %; Eosinophils % 3.3 %; HCT 44.5 % (40.0-50.0); HGB 15.6 g/dL (13.5-17.5); Immature Grans % 0.8 %; Lymphocytes % 26.6 %; MCH 33.2 pg (27.0-33.0); MCHC 35.1 % (32.0-36.0); MCV 95 fL (80-95); MPV 9.4 fL (8.0-11.0); Monocytes % 9.7 %; Neutrophils % 58.8 %; Platelet Count 146 10^3/uL (130-400); RDW 12.4 % (11.8-14.1); RDW-SD 43.3 fL; WBC 6.09 10^3/uL (4.4-10.8)
[2024-02-19 09:21] LABS: ALT 43 U/L (16-63); AST 28 U/L (15-37); Albumin 4.4 g/dL (3.4-5.0); Alkaline Phosphatase 70 U/L (46-116); BUN 20 mg/dL (7-18); Bilirubin, Total 0.8 mg/dL (0.2-1.0); CREATININE 1.1 mg/dL (0.70-1.30); Calcium 8.8 mg/dL (8.5-10.1); Chloride 105 mmol/L (98-107); Glucose 110 mg/dL (74-106); Potassium 4.4 mmol/L (3.5-5.1); Sodium 143 mmol/L (136-145); Total Protein 7.6 g/dL (6.4-8.2)
[2024-02-19] MEDS: Omnipaque 350 MG/ML 500 ML BTL-Imaging package IJ (10:11)
[2024-02-19 19:02] LABS: CEA 1.9 ng/mL (See Note)
== END ==
PROVIDERS: PCP Legal Medicine; Visit Provider Nurse Practitioner Family
DX: C18.2 Malignant neoplasm of ascending colon (principal); Z98.890 Other specified postprocedural states; K81.9 Cholecystitis, unspecified
CPT/HCPCS: 36415; 74177; 80053; 71260; 82378; 85025

== ENCOUNTER 2024-05-25 03:20 | Outpatient (CLI) | payer MEDICARE, BC, SELFPAY ==
[2024-05-25 18:54] LABS: CEA 1.7 ng/mL (See Note)
== END 2024-05-25 03:21 | disposition home or self-care (01) ==
LOC: LBO 03:20
PROVIDERS: PCP Legal Medicine; Visit Provider Internal Medicine Hematology & Oncology
DX: C18.4 Malignant neoplasm of transverse colon (principal)
CPT/HCPCS: 36415; 82378

== ENCOUNTER 2024-08-10 02:06 | Outpatient (CLI) | payer MEDICARE, BC, SELFPAY ==
--- NOTE | 2024-08-10 | DI.CT_ITS ---
Exam(s) CT CHEST/ABD/PEL W EXAM: CT CHEST/ABD/PEL W CLINICAL HISTORY: H/O RESECTED COLON CA, C18.2 TECHNIQUE: Imaging Protocol: Axial computed tomography images with coronal and sagittal reformatted images were created and reviewed. Computer aided detection (CAD) was utilized. CONTRAST MATERIAL: Intravenous: Omnipaque 350 contrast volume:100 mL Oral: Yes COMPARISON: CT CT CHEST/ABD/PEL W from 08/24/[address] ABDOMEN PELVIS WO from 09/29/[address] CHEST/ABD/PEL W from 02/19/2024 FINDINGS: CHEST: Tracheobronchial tree: Patent where visualized. No evidence of bronchiectasis. Pulmonary parenchyma: No consolidation or dominant measurable mass. No architectural distortion. Ther e is atelectasis in the lung bases. Visualized thyroid gland: Unremarkable. There is again seen a 2.5 cm hypodense nodule in the inferior pole of the left thyroid gland. This is unchanged. Mediastinum and Padmini: No dominant adenopathy or fluid collection. The esophagus is unremarkable. Pleura: No effusion or pneumothorax. Heart: The heart is not dilated. Three vessel coronary artery calcification is present. No pericardi al effusion. Pulmonary arteries: Due to the timing of the bolus, there is suboptimal opacification of the pulmonar y arteries. No large central pulmonary embolus is seen. Aorta: Thoracic aorta non-dilated. Atherosclerotic calcification is present. There is no evidence of dissection. Lymph nodes: Within normal limits. Soft tissues: Unremarkable. Bones:Within normal limits for the patient's age. No aggressive osseous lesions are present. ABDOMEN: Liver: There is fatty infiltration of the liver. No measurable mass. Portal, Superior Mesenteric, and Splenic Veins: Unremarkable. Gallbladder and Biliary Tract: There is a 3.5 cm gallstone. No biliary ductal dilatation is present. Pancreas: Normal density, no abnormal calcifications or inflammatory process. Spleen: Normal. Adrenals: No masses seen. Kidneys: Normal size, contour and axis. No radiodense stones or obstructive uropathy. There are bilat eral simple renal cysts. No follow-up is recommended. Abdominal Aorta: Abdominal portion non-dilated. Atherosclerotic calcification is present. Bowel: There is diverticulosis of the colon without evidence of acute diverticulitis. The patient webster s had a prior subtotal colectomy. There is no evidence of bowel wall thickening or obstruction. The re is a small midline incisional hernia containing an unremarkable loop of small bowel. Peritoneal Cavity: No ascites, collection or mesenteric inflammatory response. No free air. Lymph Nodes: Within normal limits. Bones: Within normal limits for the patient's age. No aggressive osseous lesions. Soft Tissues: There is a fat containing umbilical hernia. PELVIS: Bladder: Symmetric distention, no gross wall thickening. Reproductive Organs: Mildly enlarged prostate gland. Lymph Nodes: Within normal limits. Bones: Within normal limits. IMPRESSION: 1. No evidence of thoracic metastatic disease. 2. No evidence of abdominal or pelvic metastatic disease. 3. Incidental findings in the chest, abdomen and pelvis as described above. 4. No acute abnormality. RADIATION DOSE DELIVERED: 1,287.57mGy.cm Total DLP DATA REPOSITORY: All CT scans at this facility are submitted to the National Radiology Data Registry (NRDR) Dose Index Registry (DIR) with the [employer] (ACR). RADIATION OPTIMIZATION: All CT scans at this facility use at least one of these dose optimization te chniques: automated exposure control; mA and/or kV adjustment per patient size (includes targeted exa ms where dose is matched to clinical indication); or iterative reconstruction.
[2024-08-10] MEDS: Barium Sulfate 2% W/V-Creamy Vanilla Smoothie 450 ML BTL PO ×2 (08:31→08:32)
[2024-08-10 09:20] LABS: ALT 43 U/L (16-63); AST 36 U/L (15-37); Albumin 4.3 g/dL (3.4-5.0); Alkaline Phosphatase 67 U/L (46-116); Anion Gap 12.8 mmol/L (3-11); BUN 19 mg/dL (7-18); Bilirubin, Total 1.06 mg/dL (0.2-1.0); CO2 24.2 mmol/L (21.0-32.0); CREATININE 1.1 mg/dL (0.70-1.30); Calcium 9.3 mg/dL (8.5-10.1); Chloride 107 mmol/L (98-107); Estimated GFR 74.04 (mL/min/1.73m2); Glucose 116 mg/dL (74-106); Potassium 4.2 mmol/L (3.5-5.1); Sodium 144 mmol/L (136-145); Total Protein 7.7 g/dL (6.4-8.2)
[2024-08-10] MEDS: Normal Saline - Diluent 50 ML VIAL IJ (10:03)
[2024-08-10] MEDS: Omnipaque 350 MG/ML 500 ML BTL-Imaging package IJ (10:04)
[2024-08-10 18:30] LABS: CEA 1.7 ng/mL (See Note)
== END 2024-08-10 02:26 ==
LOC: DI 02:06
PROVIDERS: PCP Legal Medicine; Visit Provider Nurse Practitioner Family
DX: C18.2 Malignant neoplasm of ascending colon (principal)
CPT/HCPCS: 74177; 80053; 71260; 82378

== ENCOUNTER 2025-02-13 02:46 | Outpatient (CLI) | payer MEDICARE, BC, SELFPAY ==
--- NOTE | 2025-02-13 | DI.CT_ITS ---
Exam(s) CT CHEST/ABD/PEL W EXAM: CT CHEST/ABD/PEL W CLINICAL HISTORY: Stage III colon CA, malignant neoplasm of transverse colon, C18.4 TECHNIQUE: Imaging Protocol: Axial computed tomography images with coronal and sagittal reformatted images were created and reviewed. Lung Computer Aided Detection (CAD) was utilized. CONTRAST MATERIAL: Intravenous: Omnipaque 350 contrast volume:100 mL Oral: Yes COMPARISON: CT CT CHEST/ABD/PEL W from 08/10/2024 FINDINGS: CHEST: Tracheobronchial tree: Patent where visualized. No evidence of bronchiectasis. Pulmonary parenchyma: No consolidation or dominant measurable mass. No architectural distortion. Ther e is dependent atelectasis. Visualized thyroid gland: There has been no change in size of the hypodense nodule in the left lobe o f the thyroid gland. Mediastinum and Padmini: No dominant adenopathy or fluid collection. The esophagus is unremarkable. Pleura: No effusion or pneumothorax. Heart: The heart is not dilated. Three vessel coronary artery calcification is present. No pericardia l effusion. Pulmonary arteries: No large central pulmonary emboli are seen. Aorta: Thoracic aorta non-dilated. There is no evidence of dissection. Atherosclerotic calcification is present. Lymph nodes: Within normal limits. Soft tissues: Unremarkable. Bones:Within normal limits for the patient's age. No new osseous lesions are present. ABDOMEN: Liver: Mildly enlarged liver. There does appear to be decreased attenuation of the liver suggesting fatty infiltration. No measurable mass. Portal, Superior Mesenteric, and Splenic Veins: Unremarkable. Gallbladder and Biliary Tract: There is a 3.2 cm gallstone. The gallbladder is otherwise unremarkabl e. There is no biliary ductal dilatation. Pancreas: Normal density, no abnormal calcifications or inflammatory process. Spleen: The spleen is enlarged measuring 14 cm. Adrenals: No masses seen. Kidneys: Normal size, contour and axis. No radiodense stones or obstructive uropathy. There are simpl e bilateral renal cysts. No follow-up is recommended. Abdominal Aorta: Abdominal portion non-dilated. Atherosclerotic calcification is present. Bowel: There is diverticulosis of the colon without evidence of acute diverticulitis. No evidence of bowel obstruction is present. There has been a prior right colectomy. No evidence of bowel wall th ickening. No pneumatosis. There are again seen midline anterior abdominal wall hernias. Unremarkab le loops of small bowel are seen within the hernia. No evidence of strangulation or obstruction. The stomach is incompletely distended but grossly unremarkable. Peritoneal Cavity: No ascites, collection or mesenteric inflammatory response. No free air. Lymph Nodes: Within normal limits. Bones: Within normal limits for the patient's age. No evidence of aggressive osseous lesion. Soft Tissues: Midline anterior abdominal wall fat and small bowel containing hernia are noted. PELVIS: Bladder: Symmetric distention, no gross wall thickening. Reproductive Organs: Prostate gland is mildly enlarged. Lymph Nodes: Within normal limits. Bones: Within normal limits. IMPRESSION: 1. No evidence of abdominal or pelvic metastatic disease. 2. No evidence of thoracic metastatic disease. RADIATION DOSE DELIVERED: 1,763.67mGy.cm Total DLP DATA REPOSITORY: All CT scans at this facility are submitted to the National Radiology Data Registry (NRDR) Dose Index Registry (DIR) with the [employer] (ACR). RADIATION OPTIMIZATION: All CT scans at this facility use at least one of these dose optimization te chniques: automated exposure control; mA and/or kV adjustment per patient size (includes targeted exa ms where dose is matched to clinical indication); or iterative reconstruction.
[2025-02-13 08:54] LABS: Estimated GFR 83.01 (mL/min/1.73m2)
[2025-02-13] MEDS: Barium Sulfate 2% W/V-Berry Smoothie 450 ML BTL PO ×2 (08:57→08:58)
[2025-02-13] MEDS: Omnipaque 350 MG/ML 500 ML BTL-Imaging package 100 ML IJ (09:57)
[2025-02-13] MEDS: Normal Saline - Diluent 50 ML VIAL IJ (09:57)
== END 2025-02-13 03:06 ==
LOC: DI 02:46
PROVIDERS: PCP Legal Medicine; Visit Provider Nurse Practitioner Family
DX: C18.4 Malignant neoplasm of transverse colon (principal)
CPT/HCPCS: 74177; 71260; 82565